=== PATIENT | male | born 1950 | race Caucasian/White ===

== ENCOUNTER → 2017-02-15 | Outpatient (CLI) | payer BC ==
[~2017-02-15] MED LIST: CNT PO; DIFL0.0519 OPR; DUTA0.5C PO; DXY100 PO; KETOCONAZOLE SHAMPOO; METR1GEL3; NAPR1TAB9 PO; SILO8CAP PO; SIMV20TA2 PO
[2017-02-15 09:22] LABS: BASO % 0.7 %; BASO ABS # 0.04 K/uL (0-0.2); COMPLETE YES; EOS % 7.4 %; IG% 0.2 %; LYMPH % 24.3 %; LYMPH ABS # 1.34 K/uL (1.2-3.4); MEAN CELL VOLUME 104.6 fL (80-100); MEAN CORPUSCULAR HGB CONC 34.4 g/dl (32-36); MEAN PLATELET VOLUME 11.1 fL (7.4-10.4); MONO % 14.1 %; NEUT % 53.3 %; PLATELET COUNT 104 K/uL (130-400); RED BLOOD COUNT 3.92 M/uL (4.7-6.1); WHITE BLOOD COUNT 5.52 K/uL (4.8-10.8)
[2017-02-15 09:48] LABS: ESTIMATED AVERAGE GLUCOSE 117 mg/dl; HA1C FLAG Normal (Normal)
[2017-02-15 10:05] LABS: ALT/SGPT 22 U/L (12-78); BLOOD UREA NITROGEN 26 mg/dl (7-18); BUN/CREATININE RATIO 23.5 (10-20); CALCIUM 8.6 mg/dl (8.5-10.1); CARBON DIOXIDE 26 mmol/L (21-32); CHLORIDE 110 mmol/L (98-107); CHOLESTEROL 165 mg/dl (0-200); GLUCOSE 113 mg/dl (70-99); POTASSIUM 4.3 mmol/L (3.5-5.1); SODIUM 143 mmol/L (136-145)
[2017-02-15 10:09] LABS: ALB/GLOB RATIO 1.2 (0.9-2); ALKALINE PHOSPHATASE 51 U/L (45-117); AST/SGOT 14 U/L (15-37); CHOLESTEROL/HDL RATIO 3.1; HDL CHOLESTEROL 54 mg/dl; LDL CHOLESTEROL CALCULATED 95 mg/dl; PROSTATE SPECIFIC ANTIGEN 0.425 ng/ml (0.000-4.000); TRIGLYCERIDES 81 mg/dl (0-150); VERY LOW DENSITY LIPOPROT CALC 16 mg/dl
== END | disposition home or self-care (01) ==
LOC: C.LAB1850 08:18
PROVIDERS: ATTEND Internal Medicine
DX: N40.0 Benign prostatic hyperplasia without lower urinary tract symptoms (principal); N39.41 Urge incontinence; E11.9 Type 2 diabetes mellitus without complications; D69.6 Thrombocytopenia, unspecified; Z13.220 Encounter for screening for lipoid disorders

== ENCOUNTER → 2017-02-21 | Outpatient (CLI) | payer BC | END | disposition home or self-care (01) | LOC: C.RDSM 11:42 | PROVIDERS: ATTEND Physical Medicine & Rehabilitation Sports Medicine | DX: M25.562 Pain in left knee (principal) ==

== ENCOUNTER → 2017-08-26 | Outpatient (CLI) | payer BC ==
[2017-08-26 12:11] LABS: BASO % 2.3 %; BASO ABS # 0.14 K/uL (0-0.2); COMPLETE YES; EOS % 6.9 %; HEMATOCRIT 42.7 % (42-52); IG% 0.8 %; LYMPH % 26.1 %; LYMPH ABS # 1.59 K/uL (1.2-3.4); MEAN CORPUSCULAR HEMOGLOBIN 35.8 pg (25-34); MEAN CORPUSCULAR HGB CONC 33.5 g/dl (32-36); MEAN PLATELET VOLUME 10.5 fL (7.4-10.4); MONO % 10.2 %; NEUT % 53.7 %; PLATELET COUNT 147 K/uL (130-400); RED BLOOD COUNT 3.99 M/uL (4.7-6.1)
[2017-08-26 12:24] LABS: ESTIMATED AVERAGE GLUCOSE 114 mg/dl; HA1C FLAG Normal (Normal)
[2017-08-26 12:48] LABS: ALT/SGPT 44 U/L (12-78); AST/SGOT 32 U/L (15-37); BLOOD UREA NITROGEN 20 mg/dl (7-18); BUN/CREATININE RATIO 18.4 (10-20); CALCIUM 9.6 mg/dl (8.5-10.1); CARBON DIOXIDE 23 mmol/L (21-32); CHLORIDE 109 mmol/L (98-107); GLUCOSE 103 mg/dl (70-99); POTASSIUM 4.2 mmol/L (3.5-5.1); SODIUM 141 mmol/L (136-145)
[2017-08-26 12:50] LABS: ALB/GLOB RATIO 1.2 (0.9-2); ALKALINE PHOSPHATASE 75 U/L (45-117)
== END | disposition home or self-care (01) ==
LOC: C.LAB1850 10:20
PROVIDERS: ATTEND Internal Medicine
DX: R73.03 Prediabetes (principal); G62.9 Polyneuropathy, unspecified

== ENCOUNTER 2017-11-23 00:42 | Emergency (ER) | payer BC ==
[~2017-11-23] VITALS: Ht 193 cm; Wt 113.0 kg
[2017-11-23 00:47] VITALS: TEMP 36.5; Ht 193 cm; Wt 113.0 kg
[2017-11-23] MEDS ORDERED: XYLOCAINE 1%/SOD BICARB 20 ML VIAL INFIL ONE (01:30)
[2017-11-23 01:44] LABS: BASO % 1.4 %; BASO ABS # 0.17 K/uL (0-0.2); EOS % 3.7 %; EOS ABS # 0.45 K/uL (0-0.5); HEMATOCRIT 46.3 % (42-52); HEMOGLOBIN 15.7 g/dL (14.0-18.0); IG# 0.16 K/uL (0.00-0.02); LYMPH % 20.8 %; LYMPH ABS # 2.54 K/uL (1.2-3.4); MEAN CELL VOLUME 109.7 fL (80-100); MEAN CORPUSCULAR HEMOGLOBIN 37.2 pg (25-34); MEAN CORPUSCULAR HGB CONC 33.9 g/dl (32-36); MEAN PLATELET VOLUME 10.7 fL (7.4-10.4); MONO % 3.9 %; MONO ABS # 0.47 K/uL (0.11-0.59); NEUT % 68.9 %; PLATELET COUNT 161 K/uL (130-400); RED CELL DISTRIBUTION WIDTH CV 14.7 % (11.5-14.5); RED CELL DISTRIBUTION WIDTH SD 59.2 fL (36.4-46.3); WHITE BLOOD COUNT 12.19 K/uL (4.8-10.8)
[2017-11-23 02:03] LABS: ALBUMIN 4.2 gm/dl (3.4-5.0); CALCIUM 9.3 mg/dl (8.5-10.1); CREATININE 1.33 mg/dl (0.60-1.40); TOTAL PROTEIN 8.2 gm/dl (6.4-8.2)
[2017-11-23 02:06] LABS: POTASSIUM 4.2 mmol/L (3.5-5.1)
--- NOTE | 2017-11-23 04:36 | EMERGENCY ROOM VISIT NOTE ---
ED Visit Note I was asked to the laceration repair of this patient. Location: Scalp Total length: 4cm Complexity: Simple Verbal consent was obtained after the risks and benefits were explained, including but not limited to bleeding, scarring, infection, pain, and bone/ nerve damage. At this time, the risks of the procedure are less than the risks of NOT performing the procedure. A time out was taken and the correct patient and site identified. The scalp was prepped with betadine. The target area was anesthetized with 3 ml of 1% lidocaine without epinephrine. Copious irrigation was performed using saline. The skin was re-prepped with betadine, the hair cleared from the wound, and a sterile field set. The wound was explored for foreign bodies and none found. Debridement was not performed. The wound edges were approximated using 9 surgical lorena in the standard fashion. Hemostasis and excellent approximation was achieved. Antibacterial ointment and a sterile dressing applied. Detailed wound care instructions and signs and symptoms of infection reviewed with the pt/. No complications and the patient tolerated the procedure well. Current/Historical Medications Scheduled Dutasteride (Avodart), 0.5 MG PO DAILY Simvastatin (Zocor), 20 MG PO QPM Allergies Coded Allergies: Adhesives (Verified Allergy, Mild, BANDAIDS - RED ITCH SKIN, 11/23/17) Animal Dander (Verified Allergy, Unknown, HORSE - UNKNOWN, 11/23/17) Horse-derived Products (Verified Allergy, Unknown, UNKNOWN, 11/23/17) Latex (Verified Allergy, Unknown, UNKNOWN, 11/23/17) Vital Signs Date Time Temp Pulse Resp B/P (MAP) Pulse Ox O2 Delivery O2 Flow Rate FiO2 11/23/17 04:06 84 11/23/17 04:01 147/79 11/23/17 04:00 86 15 96 11/23/17 03:31 129/73 11/23/17 03:01 143/75 11/23/17 03:00 87 18 95 11/23/17 02:31 145/83 11/23/17 02:01 89 18 140/89 96 Room Air 11/23/17 02:01 140/89 11/23/17 02:00 86 18 97 11/23/17 00:54 91 11/23/17 00:47 36.5 93 18 151/78 96 Room Air Laboratory Results 11/23/17 00:43 Red Blood Count 4.22, Mean Corpuscular Volume 109.7, Mean Corpuscular Hemoglobin 37.2, Mean Corpuscular Hemoglobin Concent 33.9, Mean Platelet Volume 10.7, Neutrophils (%) (Auto) 68.9, Lymphocytes (%) (Auto) 20.8, Monocytes (%) ( Auto) 3.9, Eosinophils (%) (Auto) 3.7, Basophils (%) (Auto) 1.4, Neutrophils # ( Auto) 8.40, Lymphocytes # (Auto) 2.54, Monocytes # (Auto) 0.47, Eosinophils # ( Auto) 0.45, Basophils # (Auto) 0.17 11/23/17 00:43 Test 11/23/17 00:43 11/23/17 01:37 11/23/17 01:55 White Blood Count 12.19 K/uL (4.8-10.8) Red Blood Count 4.22 M/uL (4.7-6.1) Hemoglobin 15.7 g/dL (14.0-18.0) Hematocrit 46.3 % (42-52) Mean Corpuscular Volume 109.7 fL (80-100) Mean Corpuscular Hemoglobin 37.2 pg (25-34) Mean Corpuscular Hemoglobin Concent 33.9 g/dl (32-36) Platelet Count 161 K/uL (130-400) Mean Platelet Volume 10.7 fL (7.4-10.4) Neutrophils (%) (Auto) 68.9 % Lymphocytes (%) (Auto) 20.8 % Monocytes (%) (Auto) 3.9 % Eosinophils (%) (Auto) 3.7 % Basophils (%) (Auto) 1.4 % Neutrophils # (Auto) 8.40 K/uL (1.4-6.5) Lymphocytes # (Auto) 2.54 K/uL (1.2-3.4) Monocytes # (Auto) 0.47 K/uL (0.11-0.59) Eosinophils # (Auto) 0.45 K/uL (0-0.5) Basophils # (Auto) 0.17 K/uL (0-0.2) RDW Standard Deviation 59.2 fL (36.4-46.3) RDW Coefficient of Variation 14.7 % (11.5-14.5) Immature Granulocyte % (Auto) 1.3 % Immature Granulocyte # (Auto) 0.16 K/uL (0.00-0.02) Anion Gap 9.0 mmol/L (3-11) Est Creatinine Clear Calc Drug Dose 73.1 ml/min Estimated GFR () 63.2 Estimated GFR (Non- 54.5 BUN/Creatinine Ratio 13.9 (10-20) Calcium Level 9.3 mg/dl (8.5-10.1) Total Bilirubin 0.3 mg/dl (0.2-1) Aspartate Amino Transf (AST/SGOT) 37 U/L (15-37) Alanine Aminotransferase (ALT/SGPT) 77 U/L (12-78) Alkaline Phosphatase 80 U/L (45-117) Total Protein 8.2 gm/dl (6.4-8.2) Albumin 4.2 gm/dl (3.4-5.0) Globulin 4.0 gm/dl (2.5-4.0) Albumin/Globulin Ratio 1.1 (0.9-2) Thyroid Stimulating Hormone (TSH) 1.210 uIu/ml (0.300-4.500) Ethyl Alcohol mg/dL 247.0 mg/dl (0-3) Urine Color YELLOW Urine Appearance CLEAR (CLEAR) Urine pH 5.0 (4.5-7.5) Urine Specific [place] 1.010 (1.000-1.030) Urine Protein NEG (NEG) Urine Glucose (UA) NEG (NEG) Urine Ketones NEG (NEG) Urine Occult Blood NEG (NEG) Urine Nitrite NEG (NEG) Urine Bilirubin NEG (NEG) Urine Urobilinogen NEG (NEG) Urine Leukocyte Esterase NEG (NEG) Departure Information Referrals Rainer Tyler M.D. (PCP) Forms HOME CARE DOCUMENTATION FORM, IMPORTANT VISIT INFORMATION Patient Instructions My [facility], ED Head Injury Closed Additional Instructions [place]: Read head injury handout and return for any symptoms. Keep wound clean and dry. No water on the area for 12-24 hrs then no soaking until lorena removed. Do not allow any crusting or dried blood to accumulate on lorena. If this occurs, use a 1:1 solution of hydrogen peroxide/water on a Q-tip to clean the wound. Use an antibiotic ointment for 3-4 days, then let wound dry. Staple removal in 8 days. Return sooner for any signs of infection (increasing redness , swelling, drainage). Ice and elevate for swelling and pain. Keep covered when in sun until lorena removed then SPF 50 or higher for one year. Vitamin E oil if desired two weeks after staple removal for reduction of scar.
[2017-11-23 04:58] VITALS: BP 155/90; PULSE 87; O2SAT 96
--- NOTE | 2017-11-23 07:08 | DIAGNOSTIC IMAGING REPORT ---
CT SCAN OF THE BRAIN WITHOUT IV CONTRAST CLINICAL HISTORY: Fall with head injury. COMPARISON STUDY: No priors. TECHNIQUE: Unenhanced axial CT scan of the brain is performed from the vertex to the skull base. A dose lowering technique was utilized adhering to the principles of ALARA. CT DOSE: 614.27 mGy.cm FINDINGS: Brain parenchyma: There are age-related involutional changes noting mild subcortical and periventricular microangiopathic change. There is no hemorrhage, mass effect, or evidence of acute territorial ischemia by CT criteria. Grimm-white matter is preserved. No extra-axial fluid collection is seen. Ventricles, sulci, cisterns: Prominent secondary to involutional change. Intracranial vasculature: There is atherosclerotic calcification of the cavernous carotid arteries. Calvarium: There is no depressed calvarial fracture. Sinuses and mastoids: There is mild mucosal thickening within the sphenoid sinuses. Mild to moderate mucosal thickening is seen within the ethmoid sinuses that is greatest anteriorly. A retention cyst in the right maxillary antrum measures up to 1.9 cm. Trace mucosal thickening seen within the maxillary sinuses. The mastoid air cells are well pneumatized. Orbits: The bony orbits are grossly intact. There are bilateral ocular lens implants. IMPRESSION: There is no hemorrhage, mass effect, or evidence of acute territorial ischemia by CT criteria. Electronically signed by: Wei Stein M.D. 11/23/2017 7:07 AM Dictated Date/Time: 11/23/2017 7:05 AM
--- NOTE | 2017-11-23 09:54 | EMERGENCY ROOM VISIT NOTE ---
History Report prepared by Danisha: Brenda Bradshaw Under the Supervision of: Dr. Savanah Ann D.O. First contact with patient: 00:53 Chief Complaint: FALL Stated Complaint: FALL History of Present Illness The patient is a 67 year old male who presents to the Emergency Room with complaints of an episode of a fall occurring last night. The patient states that he fell while going for his daily walk 5 hours ago. He states that he lost his footing and couldn't get up because he was too weak. He reports that he called his to help him get up. The states that he was able to walk home. She states that she was shocked that he had fallen, but notes he had fallen out of bed a month ago. She notes that he was fine, but had skinned his knees up. The patient states that he felt fine all day and did not feel weak. The notes that the patient seemed fine after the fall, but fell again two hours ago. She states that he had gotten up from watching TV to use the restroom and fell while on the toilet. She reports that she tried to get him up , but she couldn't this time. The patient denies ever falling off the toilet before. He states that he is not sure why he fell off and doesn't remember any of it. He notes that he thinks he may have lost consciousness since he hit his head so hard. His states that if he did it was very brief because she heard him fall and immediately went to his aid. She states that he was conscious when she arrived. The patient complains of feeling fatigued lately. The patient denies walking with a walker, nausea, vomiting, chest pain, shortness of breath, and drinking alcohol. Source of History: patient, spouse/significant other Onset: last night Position: other (global) Quality: other (global) Timing: other (episode) Associated Symptoms: + LOC, + fatigue, + weakness, No chest pain, No SOB, No nausea, No vomiting Review of Systems See HPI for pertinent positives & negatives. A total of 10 systems reviewed and were otherwise negative. Past Medical & Surgical Medical Problems: (1) Depression (2) Diabetes Family History No pertinent family history Social History Smoking Status: Former Smoker Marital Status: Housing Status: lives with significant other Current/Historical Medications Scheduled Dutasteride (Avodart), 0.5 MG PO DAILY Simvastatin (Zocor), 20 MG PO QPM Allergies Coded Allergies: Adhesives (Verified Allergy, Mild, BANDAIDS - RED ITCH SKIN, 11/23/17) Animal Dander (Verified Allergy, Unknown, HORSE - UNKNOWN, 11/23/17) Horse-derived Products (Verified Allergy, Unknown, UNKNOWN, 11/23/17) Latex (Verified Allergy, Unknown, UNKNOWN, 11/23/17) Physical Exam Vital Signs Date Time Temp Pulse Resp B/P (MAP) Pulse Ox O2 Delivery O2 Flow Rate FiO2 11/23/17 04:58 87 15 155/90 96 11/23/17 04:06 84 11/23/17 04:01 147/79 11/23/17 04:00 86 15 96 11/23/17 03:31 129/73 11/23/17 03:01 143/75 11/23/17 03:00 87 18 95 11/23/17 02:31 145/83 11/23/17 02:01 89 18 140/89 96 Room Air 11/23/17 02:01 140/89 11/23/17 02:00 86 18 97 11/23/17 00:54 91 11/23/17 00:47 36.5 93 18 151/78 96 Room Air Physical Exam Gen.: The patient is pleasant but seems to smell of alcohol. HEENT: Head - normocephalic. Large 4 cm laceration on the left parietal region of his scalp. Pupils are equal, round, and reactive to light. Extraocular eye muscles are intact and sclera are anicteric. Ears - bilaterally patent canals with no evidence of hemotympanum. Nose - moist nasal mucosa without evidence of trauma or discharge. Mouth - moist buccal mucosa with no trauma to the teeth or signs of malocclusion. Neck: The neck is supple and there is no pain to palpation over the posterior cervical spine and no obvious step-offs or deformities. There is no JVD or tracheal deviation. Chest: There are no signs of deformities, contusions or abrasions to the chest wall. There is no obvious crepitus or paradoxical chest rise. Heart: Regular, rate, and rhythm. There is a normal S1 and S2 with no murmurs, clicks, or gallops appreciated. Lungs: Clear to auscultation bilaterally with no wheezes, rales, or rhonchi. Abdomen: Soft, completely nontender, nondistended, with good bowel sounds. There is no sign of trauma such as contusions, abrasions or penetrations. There are no palpable pulsatile masses or hepatosplenomegaly. There is no guarding, rigidity, or rebound noted. Pelvis: Stable to rock and compression. Extremities: The patient has abrasions to both knees. There are easily palpable peripheral pulses. Neuro: The patient is awake and alert and easily able to follow commands. Muscle strength is 5 out of 5 in all 4 extremities. Otherwise, neuro exam is unremarkable. Slow to answer questions. Back: The entire thoracic, lumbar, and sacral spine were palpated. There are no obvious step-offs or deformities noted. There are no obvious signs of trauma such as contusions abrasions penetrations noted to the back. Medical Decision & Procedures ER Provider Diagnostic Interpretation: Radiology results as stated below per my review and the radiologist's interpretation: CT HEAD: No acute intracranial abnormality identified. Chronic small vessel ischemic disease and cerebral column loss Bilateral lens implants. Polyp versus mucous retention cyst in the right maxillary sinus. Mild mucosal thickening in the sphenoid sinuses, ethmoid air cells, and frontal sinuses. Atherosclerotic calcifications in the intracranial vasculature. Radiologist: Jaime Moreira MD Study ready at 02:17 and initial results transmitted at 02:53. Laboratory Results 11/23/17 00:43 Red Blood Count 4.22, Mean Corpuscular Volume 109.7, Mean Corpuscular Hemoglobin 37.2, Mean Corpuscular Hemoglobin Concent 33.9, Mean Platelet Volume 10.7, Neutrophils (%) (Auto) 68.9, Lymphocytes (%) (Auto) 20.8, Monocytes (%) ( Auto) 3.9, Eosinophils (%) (Auto) 3.7, Basophils (%) (Auto) 1.4, Neutrophils # ( Auto) 8.40, Lymphocytes # (Auto) 2.54, Monocytes # (Auto) 0.47, Eosinophils # ( Auto) 0.45, Basophils # (Auto) 0.17 11/23/17 00:43 Test 11/23/17 00:43 11/23/17 01:37 11/23/17 01:55 White Blood Count 12.19 K/uL (4.8-10.8) Red Blood Count 4.22 M/uL (4.7-6.1) Hemoglobin 15.7 g/dL (14.0-18.0) Hematocrit 46.3 % (42-52) Mean Corpuscular Volume 109.7 fL (80-100) Mean Corpuscular Hemoglobin 37.2 pg (25-34) Mean Corpuscular Hemoglobin Concent 33.9 g/dl (32-36) Platelet Count 161 K/uL (130-400) Mean Platelet Volume 10.7 fL (7.4-10.4) Neutrophils (%) (Auto) 68.9 % Lymphocytes (%) (Auto) 20.8 % Monocytes (%) (Auto) 3.9 % Eosinophils (%) (Auto) 3.7 % Basophils (%) (Auto) 1.4 % Neutrophils # (Auto) 8.40 K/uL (1.4-6.5) Lymphocytes # (Auto) 2.54 K/uL (1.2-3.4) Monocytes # (Auto) 0.47 K/uL (0.11-0.59) Eosinophils # (Auto) 0.45 K/uL (0-0.5) Basophils # (Auto) 0.17 K/uL (0-0.2) RDW Standard Deviation 59.2 fL (36.4-46.3) RDW Coefficient of Variation 14.7 % (11.5-14.5) Immature Granulocyte % (Auto) 1.3 % Immature Granulocyte # (Auto) 0.16 K/uL (0.00-0.02) Anion Gap 9.0 mmol/L (3-11) Est Creatinine Clear Calc Drug Dose 73.1 ml/min Estimated GFR () 63.2 Estimated GFR (Non- 54.5 BUN/Creatinine Ratio 13.9 (10-20) Calcium Level 9.3 mg/dl (8.5-10.1) Total Bilirubin 0.3 mg/dl (0.2-1) Aspartate Amino Transf (AST/SGOT) 37 U/L (15-37) Alanine Aminotransferase (ALT/SGPT) 77 U/L (12-78) Alkaline Phosphatase 80 U/L (45-117) Total Protein 8.2 gm/dl (6.4-8.2) Albumin 4.2 gm/dl (3.4-5.0) Globulin 4.0 gm/dl (2.5-4.0) Albumin/Globulin Ratio 1.1 (0.9-2) Thyroid Stimulating Hormone (TSH) 1.210 uIu/ml (0.300-4.500) Ethyl Alcohol mg/dL 247.0 mg/dl (0-3) Urine Color YELLOW Urine Appearance CLEAR (CLEAR) Urine pH 5.0 (4.5-7.5) Urine Specific [place] 1.010 (1.000-1.030) Urine Protein NEG (NEG) Urine Glucose (UA) NEG (NEG) Urine Ketones NEG (NEG) Urine Occult Blood NEG (NEG) Urine Nitrite NEG (NEG) Urine Bilirubin NEG (NEG) Urine Urobilinogen NEG (NEG) Urine Leukocyte Esterase NEG (NEG) Laboratory results per my review. Procedure 0130: Ordered Lidocaine HCl 20 ml INFIL. ECG Indication: weakness Rate (beats per minute): 89 Rhythm: normal sinus Findings: no acute ischemic change, no ectopy ED Course 0118: Past medical records reviewed. The patient was evaluated in room B2. A complete history and physical exam was performed. A twelve-lead EKG was obtained as described above. An IV lock was initiated and labs are drawn as above. 0130: Ordered Lidocaine HCl 20 ml INFIL. 0152: I reevaluated the patient and he was doing okay. He was unsure when his last Tetanus was. The patient went for CT scan of the brain. 0215: I reevaluated the patient and he is doing well. The patient's blood alcohol level was elevated. I confronted him about this. His explains that the patient has a history of alcoholism. The patient explains that he was not truthful because he did not want his to know that he was drinking 0354: I reevaluated the patient and reviewed his labs with him and his . I notified them that the PA will be in shortly to staple his laceration. Please see her procedure note dictation 0445: Upon reevaluation, the patient was resting comfortably. I discussed findings and results with him. He verbalized agreement of the treatment plan. The patient was discharged home. Medical Decision The patient is a 67 year old male who presents to the Emergency Room with complaints of an episode of a fall occurring last night. Differential diagnoses include alcohol intoxication, closed head injury, intracranial mass, hypoglycemia, hyponatremia, hydrocephalus. LABS: White count 12.2 Stable H&H Normal renal function Normal electrolytes Glucose 121 Normal LFTs Normal TSH Urinalysis was negative Alcohol 247 The patient presented to the emergency department after suffering 2 falls at home. The second one resulted in a laceration to the left side of his head. Initially, the patient denied any alcohol use. A more broad workup was performed. However, the patient blood alcohol level came back at 247. I discussed the possibility of rehabilitation with the patient. He was not interested. The wound on the head was repaired. He was allowed some time to sober up and then he was discharged home after receiving all of his laboratory results. Medication Reconcilliation Current Medication List: was personally reviewed by me Blood Pressure Screening Patient's blood pressure: Elevated blood pressure Blood pressure disposition: Elevated BP felt to be situational Impression Primary Impression: Scalp laceration Additional Impression: Alcohol intoxication Scribe Attestation The scribe's documentation has been prepared under my direction and personally reviewed by me in its entirety. I confirm that the note above accurately reflects all work, treatment, procedures, and medical decision making performed by me. Departure Information Dispostion Home / Self-Care Referrals Rainer Tyler M.D. (PCP) Forms HOME CARE DOCUMENTATION FORM, IMPORTANT VISIT INFORMATION Patient Instructions My [facility] Additional Instructions [place]: Read head injury handout and return for any symptoms. Keep wound clean and dry. No water on the area for 12-24 hrs then no soaking until lorena removed. Do not allow any crusting or dried blood to accumulate on lorena. If this occurs, use a 1:1 solution of hydrogen peroxide/water on a Q-tip to clean the wound. Use an antibiotic ointment for 3-4 days, then let wound dry. Staple removal in 8 days. Return sooner for any signs of infection (increasing redness , swelling, drainage). Ice and elevate for swelling and pain. Keep covered when in sun until lorena removed then SPF 50 or higher for one year. Vitamin E oil if desired two weeks after staple removal for reduction of scar. Avoid such excessive alcohol use in the future. Problem Qualifiers Primary Impression: Scalp laceration Encounter type: initial encounter Qualified Codes: S01.01XA - Laceration without foreign body of scalp, initial encounter Additional Impression: Alcohol intoxication Complication of substance-induced condition: uncomplicated Qualified Codes: F10.920 - Alcohol use, unspecified with intoxication, uncomplicated
== END 2017-11-23 04:59 | disposition home or self-care (01) ==
LOC: C.EDB 00:42 → EDBD 00:42 → C.EDB 04:59
DX: S01.01XA Laceration without foreign body of scalp, initial encounter (principal); F10.920 Alcohol use, unspecified with intoxication, uncomplicated; W18.12XA Fall from or off toilet with subsequent striking against object, initial encounter; E11.9 Type 2 diabetes mellitus without complications; Z87.891 Personal history of nicotine dependence

== ENCOUNTER → 2017-12-13 | Outpatient (CLI) | payer BC ==
[~2017-12-13] MED LIST changes: -CNT PO; -DIFL0.0519 OPR; -DXY100 PO; -KETOCONAZOLE SHAMPOO; -METR1GEL3; -NAPR1TAB9 PO; -SILO8CAP PO
[2017-12-13 09:35] LABS: BASO % 0.3 %; BASO ABS # 0.02 K/uL (0-0.2); EOS % 4.7 %; EOS ABS # 0.31 K/uL (0-0.5); HEMATOCRIT 42.8 % (42-52); HEMOGLOBIN 14.3 g/dL (14.0-18.0); IG# 0.03 K/uL (0.00-0.02); LYMPH % 24.9 %; LYMPH ABS # 1.65 K/uL (1.2-3.4); MEAN CELL VOLUME 108.6 fL (80-100); MEAN CORPUSCULAR HEMOGLOBIN 36.3 pg (25-34); MEAN CORPUSCULAR HGB CONC 33.4 g/dl (32-36); MEAN PLATELET VOLUME 10.9 fL (7.4-10.4); MONO % 11.9 %; MONO ABS # 0.79 K/uL (0.11-0.59); NEUT % 57.7 %; NEUT ABS # 3.83 K/uL (1.4-6.5); PLATELET COUNT 143 K/uL (130-400); RED CELL DISTRIBUTION WIDTH CV 14.4 % (11.5-14.5); RED CELL DISTRIBUTION WIDTH SD 57.7 fL (36.4-46.3); WHITE BLOOD COUNT 6.63 K/uL (4.8-10.8)
[2017-12-13 09:42] LABS: HEMOGLOBIN A1C 5.5 % (4.5-5.6)
[2017-12-13 10:06] LABS: ALBUMIN 3.8 gm/dl (3.4-5.0); ALT/SGPT 45 U/L (12-78); AST/SGOT 25 U/L (15-37); BLOOD UREA NITROGEN 25 mg/dl (7-18); CALCIUM 8.3 mg/dl (8.5-10.1); CARBON DIOXIDE 21 mmol/L (21-32); CHOLESTEROL 174 mg/dl (0-200); CREATININE 1.33 mg/dl (0.60-1.40); GLUCOSE 111 mg/dl (70-99); SODIUM 138 mmol/L (136-145)
[2017-12-13 10:09] LABS: ALKALINE PHOSPHATASE 57 U/L (45-117); LDL CHOLESTEROL CALCULATED 113 mg/dl; TOTAL PROTEIN 7.3 gm/dl (6.4-8.2)
== END | disposition home or self-care (01) ==
LOC: C.LAB1850 08:19
PROVIDERS: ATTEND Internal Medicine
DX: K21.9 Gastro-esophageal reflux disease without esophagitis (principal); E11.9 Type 2 diabetes mellitus without complications; N20.0 Calculus of kidney; E78.5 Hyperlipidemia, unspecified; D69.6 Thrombocytopenia, unspecified; N28.1 Cyst of kidney, acquired

== ENCOUNTER → 2017-12-19 | Outpatient (CLI) | payer BC ==
--- NOTE | 2017-12-19 16:15 | DIAGNOSTIC IMAGING REPORT ---
R KNEE 1 OR 2 VIEWS ROUTINE CLINICAL HISTORY: 67 years-old Male presenting with M25.561 Right knee [id number]. TECHNIQUE: Frontal and lateral views of the right knee were obtained. COMPARISON: Comparison made to plain radiographs of the left knee from 02/21/2017. FINDINGS: Medial joint space loss and subchondral sclerosis, slightly increased from prior radiographs. Mild osteophytosis in the lateral and patellofemoral compartments. Prominent these of height at the insertion of the quadriceps tendon. Small knee joint effusion suspected. No acute fracture or malalignment. IMPRESSION: 1. Tricompartmental degenerative changes with medial joint space loss. 2. Small knee joint effusion. 3. No acute osseous injury. Electronically signed by: Myke Hernandez M.D. 12/19/2017 4:13 PM Dictated Date/Time: 12/19/2017 4:12 PM
== END | disposition home or self-care (01) ==
LOC: C.RAD1850 15:55
PROVIDERS: ATTEND Internal Medicine
DX: M25.561 Pain in right knee (principal); M89.8X6 Other specified disorders of bone, lower leg; M25.461 Effusion, right knee

== ENCOUNTER → 2018-03-30 | Outpatient (CLI) | payer BC ==
[2018-03-30 09:58] LABS: HEMOGLOBIN A1C 5.7 % (4.5-5.6)
[2018-03-30 10:08] LABS: ALT/SGPT 49 U/L (12-78); AST/SGOT 35 U/L (15-37); BLOOD UREA NITROGEN 24 mg/dl (7-18); CARBON DIOXIDE 27 mmol/L (21-32); CHOLESTEROL 226 mg/dl (0-200); CREATININE 1.27 mg/dl (0.60-1.40); GLUCOSE 122 mg/dl (70-99); LDL CHOLESTEROL CALCULATED 143 mg/dl; POTASSIUM 3.9 mmol/L (3.5-5.1); SODIUM 139 mmol/L (136-145)
== END | disposition home or self-care (01) ==
LOC: C.LAB1850 08:10
PROVIDERS: ATTEND Internal Medicine
DX: E11.9 Type 2 diabetes mellitus without complications (principal); E78.5 Hyperlipidemia, unspecified

== ENCOUNTER 2025-02-10 16:15 | Inpatient (IN) ==
--- OUTSIDE RECORDS SUMMARY | 2025-02-10 16:21 | External Medical Summary | Continuity of Care Document ---
Author Name Unknown Organization [facility] [address] [facility] 2 Address [address] [id number] Care Team Providers Care Key Maker Name Role Phone Rainer Tyler Primary Care Physician [phone] Encounter [facility] [id number] Date(s): 12/26/24 - 12/26/24 [facility] [address] [id number] Encounter Diagnosis Inflamed seborrheic keratosis(Discharge Diagnosis) - 12/26/24 Seborrheic keratoses(Discharge Diagnosis) - 12/26/24 Other rosacea(Discharge Diagnosis) - 12/26/24 Discharge Disposition: Home or Self Care Attending Physician: MD Reese Thomas A Encounter Type: Clinic Allergies, Adverse Reactions, Alerts Substance Criticality Severity Reaction Reaction Severity Status Adhesive bandage Rash Act avtar Hay Nasal congestion Act avtar Horses positive skin test A ctive Latex skin irritation Rash Active Assessment and Plan Extracted from: Title:Clinical Document Author:MD Hugh, Ralph Hays Date:12/26/24 OUTPATIENT NOTE Name: ALVAREZ DIDIER Mike Patient Number:[id number] : 1950 Date of Service: 12/26/2024 _ Didier Dewitt returns for reevaluation. He notes discontinuation of doxycycline approximately 6 months ago and has noted no flare since discontinuing the medication. I advised him to continue off doxycycline and monitor for recurrence of the rosacea. Keratotic papule noted on the left medial calf. This appears as an inflamed seborrheic keratosis that was treated with cryotherapy as such with patient consent. Side effects were discussed and the patient will return if lesion does not completely resolve. Review of systems medications allergies as noted on the chart. The patient is in stable health. He will be taking one of his grandchildren to [place] next month. Examination reveals pleasant well-nourished white male type I skin who is alert and oriented x 3 with normal mood and affect. Examination of the scalp, head, neck, back, chest, arms, hands, fingers, abdominal area, legs, feet, and toes reveals the findings as noted above, scattered seborrheic keratoses on the back which require no further treatment and is otherwise unremarkable. The patient will return as needed for reevaluation. Medications Avodart 0.5 mg oral capsule Start: 05/09/13 8:29:00 AM EDT, 1 cap, PO, Daily Start Date: 05/09/13 Status: Ordered Repeat number: 1 betamethasone dipropionate 0.05% topical cream Start: 07/02/19 2:07:00 AM EDT, 1 appl, topical, bid Start Date: 07/02/19 Status: Ordered Repeat number: 1 Centrum Silver oral tablet Start: 04/13/13 1:01:00 PM EDT, 1 tab, PO, Daily Start Date: 04/13/13 Status: Ordered Repeat number: 1 doxycycline hyclate 50 mg oral capsule Start: 08/24/23 7:47:00 AM EDT, See Instructions, Disp# 180 cap, Refills: 3, TAKE 1 CAPSULE TWICE ADAY WITH FOOD, Pharmacy: [facility] Start Date: 08/24/23 Status: Ordered Quantity: 180.0 Unit: cap Repeat number: 1 escitalopram 10 mg oral tablet Start: 07/02/19 2:08:00 AM EDT, 1 tab, PO, Daily Start Date: 07/02/19 Status: Ordered Repeat number: 1 fluocinonide 0.05% topical solution Start: 12/15/21 2:54:00 PM EST, 1 appl, topical, bid, Disp# 60 mL, Refills: 2, to scalp for itching, Pharmacy: [facility] Start Date: 12/15/21 Status: Ordered Quantity: 60.0 Unit: mL Repeat number: 3 gabapentin 100 mg oral capsule Start: 07/02/19 2:08:00 AM EDT, 1 cap, PO, qhs Start Date: 07/02/19 Status: Ordered Repeat number: 1 metroNIDAZOLE 0.75% topical gel Start: 01/11/19 10:54:00 AM EST, See Instructions, Disp# 1 tube, Refills: 3, apply to face bid prn rosacea, Pharmacy: [facility] Start Date: 01/11/19 Status: Ordered Quantity: 1.0 Unit: tube Repeat number: 4 Nizoral 2% topical shampoo Start: 12/29/22 12:59:00 PM EST, See Instructions, Disp# 240 mL, Refills: 3, shampoo scalp 10 minutes daily for екатерина derm, Pharmacy: [facility] Start Date: 12/29/22 Status: Ordered Quantity: 240.0 Unit: mL Repeat number: 4 omeprazole 20 mg oral delayed release capsule Start: 07/02/19 2:05:00 AM EDT, 1 cap, PO, Daily Start Date: 07/02/19 Status: Ordered Repeat number: 1 Ozempic (0.25 mg or 0.5 mg dose) 2 mg/3 mL subQ pen 0.25 MG SUBCUTANEOUSLY ONCE WEEKLY FOR 4 WEEKS Start Date: 07/06/24 Status: Ordered Repeat number: 1 simvastatin 20 mg oral tablet Start: 05/09/13 8:29:00 AM EDT, 1 tab, PO, qhs Start Date: 05/09/13 Status: Ordered Repeat number: 1 triamcinolone 0.1% topical cream Start: 12/15/21 2:55:00 PM EST, 1 appl, topical, bid, Disp# 60 g, Refills: 2, apply to waistline for dermatitis, Pharmacy: [facility] Start Date: 12/15/21 Status: Ordered Quantity: 60.0 Unit: g Repeat number: 3 Tylenol 500 mg oral tablet Start: 07/03/19 1:52:00 PM EDT, 2 tab, PO, q8h Start Date: 07/03/19 Status: Ordered Repeat number: 1 Mental Status 12/26/24 Barriers to Learning one year None evide nt Mandatory Health Literacy Documentation Yes Health Literacy Communication Barriers N ever Primary Language Belarusian Problem List Condition Confirmation Course Effective Dates Status H ealth Status Informant BPH (benign prostatic hypertrophy) Confirmed Active DM (diabetes mellitus) 1 Confirmed Active Dysplastic nevus Confirmed Active C7 cervical fracture Confirmed Active Hyperlipidemia Confirmed Active Knee pain, left Confirmed Active Reflux Confirmed Active Rosacea Confirmed Active Seasonal allergies Confirmed Active Stomach ulcer Confirmed Active 1non-insulin Diagnosis Diagnosis Type Effective Dates Health Status Clinical Service Informant Other rosacea Discharge Diagnosis 12/26/24 Seborrheic keratoses Discharge Diagnosis 12/26/24 Inflamed seborrheic keratosis Discharge Diagnosis 12/26/24 Procedures Procedure Date Related Diagnosis Body Site Status CT scan - whole body 08/2024 Comp leted Cataract extraction 01/2014 Compl eted Cystoscopy 03/14/13 Completed Hernia repair 2011 Completed Left knee arthroscopy 01/21/09 Com pleted Social History Social History Type Response Smoking Status Never smoked 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 He notes discontinuation of doxycycline approximately 6 months ago and has noted no flare since discontinuing the medication. I advised him to continue off doxycycline and monitor for recurrence of the rosacea. Keratotic papule noted on the left medial calf. This appears as an inflamed seborrheic keratosis that was treated with cryotherapy as such with patient consent. Side effects were discussed and the patient will return if lesion does not completely resolve. Review of systems medications allergies as noted on the chart. The patient is in stable health. He will be taking one of his grandchildren to [place] next month. Examination reveals pleasant well-nourished white male type I skin who is alert and oriented x 3 with normal mood and affect. Examination of the scalp, head, neck, back, chest, arms, hands, fingers, abdominal area, legs, feet, and toes reveals the findings as noted above, scattered seborrheic keratoses on the back which require no further treatment and is otherwise unremarkable. The patient will return as needed for reevaluation. Electronic Signature on File Electronically Reviewed/Signed by: Zacarias Reese MD Author Signature Dt/Tm:12/26/2024 11:09 AM Department of Dermatology [facility] Patient Care team information Care Team Personnel Name: MD Tyler Jeffrey W Position: Referring DIRECT Member Role: Primary Care Provider Address: [facility] [address] Telecom: [phone] Care Team Related Persons Name: JOHNNY DEWITT Name: GERSON MOURA Insurance Providers Guarantor name: DIDIER DEWITT Health Plan Information #: 1 Payer: [employer] PPO Member Number: [id number] Policy Number: NA Group Number: [id number] Health Plan Information #: 2 Payer: [employer] PPO Member Number: [id number] Policy Number: NA Group Number: [id number]
[2025-02-10 16:46] LABS: Hematocrit (blood only) 45.4 % (42.0-52.0); Hemoglobin 15.9 g/dl (14.0-18.0); Mean Corpuscular Hemoglobin 34.8 pg (25.0-34.0); Mean Corpuscular Volume 99.3 fL (80.0-100.0); Mean Platelet Volume 10.5 fL (9.4-12.4); Platelet Count 149 K/uL (130-400); RDW Coefficient of Variation 12.7 % (11.5-14.5); RDW Standard Deviation 46.5 fL (36.4-46.3); Red Blood Count 4.57 M/uL (4.70-6.10); White Blood Count 17.98 K/ul (4.8-10.8)
--- NOTE | 2025-02-10 16:48 | Emergency Department Note ---
Impression & Plan SBO (small bowel obstruction), Abdominal pain, Weakness ED Provider Note NAME: DIDIER PINO AGE: 74 SEX: M : 1950 ARRIVES VIA: Walk-In INFORMANT: Patient, ED PROVIDER(S): Librado Baker DO CHIEF COMPLAINT: Abdominal pain HPI: Patient is a 74-year-old male who presents to the ER for periumbilical abdominal pain which started around 7 this morning. Associated with vomiting. Pain radiates throughout the belly. Does have a burning feeling coming up into the chest especially worse with vomiting. This has been present since 7 AM as well. Denies any headache or change in vision. No chest pain or shortness of breath. No dysuria, urgency, or frequency. No exertional symptoms. No other exacerbating or remitting factors. No previous abdominal surgeries. ADDITIONAL HISTORY OBTAINED: Additional history obtained from who is present at bedside who notes that no one else at home is sick Chronic Medical/Social Conditions Affecting Care: Per HPI PAST MEDICAL HISTORY:See Below PAST SURGICAL HISTORY:See Below FAMILY HISTORY:See Below SOCIAL HISTORY:See Below HOME MEDICATIONS:See Below ALLERGIES:See Below VITALS:See Below PHYSICAL EXAMINATION: GENERAL: Sitting up in bed, alert, well appearing, well nourished, no distress, non-toxic EYE EXAM: normal conjunctiva. OROPHARYNX: mucous membranes are moist NECK: supple, no nuchal rigidity, no adenopathy, non-tender LUNGS: Clear to auscultation. Normal chest wall mechanics HEART: no murmurs, S1 normal and S2 normal ABDOMEN: abdomen soft, non-tender, normo-active bowel sounds, no masses, no rebound or guarding. UPPER EXTREMITIES: upper extremities are grossly normal. LOWER EXTREMITIES: No pitting edema. NEURO EXAM: Normal sensorium, cranial nerves II-XII grossly intact, normal speech, no gross weakness of arms, no gross weakness of legs. MEDICAL DECISION MAKING: Patient is a 74-year-old male who presents to the ER with above-stated complaint. IV was established and blood work was obtained. Labs show mild leukocytosis of 2000. No significant anemia. BMP along with LFTs and bilirubin were unremarkable. Troponin was negative. Lipase was normal. CT abdomen pelvis showed a small bowel obstruction. Discussed with general surgery who notes that they will evaluate the patient at bedside per Dr. Andrade. Discussed with the hospitalist for further evaluation management treatment. He was given fluids and IV morphine and Zofran x 2. Updated bedside. No previous abdominal surgeries. Consults/Care Managements Discussions: Per MDM Triage Nursing notes reviewed. Limited review of prior medical records performed Vital Signs: reviewed and remarkable for no significant abnormalities Differential diagnosis: Differential diagnoses includes but is not limited to gastritis, peptic ulcer disease, GERD, gallbladder disease, pancreatitis, small bowel obstruction, appendicitis, diverticulitis, hernia, urinary tract infection, torsion, perforation, trauma, infectious. ER treatment provided: See below Diagnostics interpreted by me include EKG and cardiac monitoring as listed below: -Cardiac Monitoring: An order was placed for continuous cardiac monitoring. The monitor shows a rate of 80 with sinus rhythm. -ECG: Sinus rhythm rate 80 Normal axis No PVCs QTc 442 -Laboratory studies:Interpreted by me as stated above in MDM and shown below. Imaging studies: Xrays: As interpreted by me:none CTs show: CT abdomen pelvis shows air-fluid levels throughout the small bowel CT abdomen pelvis per radiology suggest a small bowel obstruction Procedures:none Critical Care: None Past Med/Surg History Problem List (Updated 02/10/25 @ 21:27 by Librado Baker DO) Weakness (Acute) Abdominal pain (Acute) SBO (small bowel obstruction) (Acute) Leukocytosis Small bowel obstruction Arachnoid cyst Sensorineural hearing loss (SNHL) of left ear with restricted hearing of right ear Peripheral neuropathy Diabetes mellitus, type 2 no meds, diet/exercise controlled Left knee DJD Right knee DJD Cerumen impaction Cerebral microvascular disease Knee pain Thrombocytopenia Prediabetes Bilateral tinnitus Sensorineural hearing loss (SNHL) of both ears Elevated serum creatinine Loss of height Vitamin D deficiency Vitamin B12 deficiency History of colon polyps Encounter for pre-operative examination Hyperlipidemia Fatty liver BPH (benign prostatic hyperplasia) Depression Medical History Bilateral tinnitus Osteoarthritis Right sciatic nerve pain GERD (gastroesophageal reflux disease) Diabetes Surgical History History of colonoscopy with polypectomy History of arthroscopy of right knee History of right inguinal hernia repair History of oral surgery gum removal History of phacoemulsification of cataract of both eyes with intraocular lens implantation Family History Father Alzheimer disease Other Family history non-contributory No family history of adverse response to anesthesia Denies family history of Ovarian cancer Prostate cancer Myocardial infarction Breast cancer Colorectal cancer Social History Smoking Status: Never smoker Second Hand Exposure: No; Do You Dip or Chew Tobacco: No; Hx Alcohol Use: No Hx Substance Use: No Preferred Language: Kuwaiti Communication Ability: Effective Visual Impairment: No Limitations Hearing Ability: Use of Hearing Aid Fermentation Manager Required: No Beliefs That Will Affect Care: None marital status: Current Living Situation: Spouse current occupational status: retired 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 [employer] Feels Safe at Home: Yes Dental Care, Regularly: Yes Physical Activity Frequency: Daily Physical Activity Frequency Comment: Stretching Seatbelt Use: always Sunscreen Use: No Assistive Devices: Glasses Allergies Allergies Allergy/AdvReac Type Severity Reaction Status Date / Time adhesive Allergy Mild BANDAIDS - Verified 12/03/24 09:15 RED ITCH SKIN latex Allergy Mild from Verified 12/03/24 09:15 allergen testing, skin irriation animal dander Allergy Unknown HORSE - Verified 12/03/24 09:15 from allergen testing Horse/Equine Containing Allergy Unknown UNKNOWN--from Verified 12/03/24 09:15 Products allergen testing No Known Drug Allergies Allergy Verified 12/03/24 09:15 Home Meds Home Medications Medication Instructions Recorded Confirmed multivitamin 1 tab PO QDL 04/12/19 02/10/25 cholecalciferol (vitamin D3) 50 50 mcg PO DAILY 02/04/22 02/10/25 mcg (2,000 unit) capsule dutasteride 0.5 mg capsule 0.5 mg PO HS 12/03/24 02/10/25 escitalopram oxalate 10 mg tablet 30 mg PO UD 02/10/25 02/10/25 gabapentin 100 mg capsule 100 mg PO UD 02/10/25 02/10/25 Previous Rx's Medication Instructions Recorded simvastatin 20 mg tablet (Zocor) 20 mg PO PM #90 tabs 02/23/24 semaglutide 0.25 mg or 0.5 mg (2 0.5 mg (0.736 mL) subcut .ONCE 12/03/24 mg/3 mL) subcutaneous pen injector WEEKLY #3 mL Results & Data (ED) Vital Signs Vital Signs - 24 hr 02/10/25 16:20 02/10/25 16:46 02/10/25 16:46 Temperature 36.6 C Temperature Source Temporal Artery Scan Pulse Rate 83 Pulse Rate [Right Finger] 76 Pulse Rate from SpO2 Sensor Pulse Rhythm [Right Finger] Regular Pulse Strength [Right Finger] Normal Respiratory Rate 20 18 Respiratory Effort / Characteristics Non-Labored Spontaneous Non-Labored Respiratory Depth Normal Normal Respiratory Pattern Regular Regular Blood Pressure 134/79 Blood Pressure [Left Arm] 156/87 H Blood Pressure Mean 97 Blood Pressure Mean [Left Arm] 110 Blood Pressure Position [Left Arm] Lying Pulse Oximetry 96 97 97 Oxygen Delivery Method Room Air Room Air Room Air Sepsis Recent Fever Within 48 Hours No Sepsis New/Unexplained Change in Mental Status N/A Sepsis Action Taken by Nursing No Action Required 02/10/25 16:58 02/10/25 17:00 02/10/25 17:39 Temperature Temperature Source Pulse Rate 77 72 Pulse Rate [Right Finger] Pulse Rate from SpO2 Sensor 73 Pulse Rhythm [Right Finger] Pulse Strength [Right Finger] Respiratory Rate 17 Respiratory Effort / Characteristics Respiratory Depth Respiratory Pattern Blood Pressure 162/89 H Blood Pressure [Left Arm] Blood Pressure Mean 113 Blood Pressure Mean [Left Arm] Blood Pressure Position [Left Arm] Pulse Oximetry 97 Oxygen Delivery Method Room Air Room Air Sepsis Recent Fever Within 48 Hours Sepsis New/Unexplained Change in Mental Status Sepsis Action Taken by Nursing 02/10/25 18:41 02/10/25 21:04 Temperature Temperature Source Pulse Rate Pulse Rate [Right Finger] 77 81 Pulse Rate from SpO2 Sensor Pulse Rhythm [Right Finger] Regular Pulse Strength [Right Finger] Normal Respiratory Rate 22 18 Respiratory Effort / Characteristics Non-Labored Non-Labored Spontaneous Respiratory Depth Normal Normal Respiratory Pattern Regular Regular Blood Pressure Blood Pressure [Left Arm] 151/108 H 165/90 H Blood Pressure Mean Blood Pressure Mean [Left Arm] 122 115 Blood Pressure Position [Left Arm] Lying Pulse Oximetry 95 99 Oxygen Delivery Method Room Air Room Air Sepsis Recent Fever Within 48 Hours Sepsis New/Unexplained Change in Mental Status Sepsis Action Taken by Nursing Laboratory Data 02/10/25 16:30 02/10/25 16:30 Lab Results 02/10/25 02/10/25 Range/Units 16:30 17:55 WBC 17.98 H (4.8-10.8) K/ul RBC 4.57 L (4.70-6.10) M/uL Hgb 15.9 (14.0-18.0) g/dl Hct 45.4 (42.0-52.0) % MCV 99.3 (80.0-100.0) fL MCH 34.8 H (25.0-34.0) pg MCHC 35.0 (32.0-36.0) g/dL RDW Std Deviation 46.5 H (36.4-46.3) fL RDW Coeff of Chuck 12.7 (11.5-14.5) % Plt Count 149 (130-400) K/uL MPV 10.5 (9.4-12.4) fL Immature Gran % (Auto) 0.6 % Neut % (Auto) 90.7 % Lymph % (Auto) 6.0 % [place] % (Auto) 2.4 % Eos % (Auto) 0.1 % Baso % (Auto) 0.2 % Neut # (Auto) 16.33 H (1.40-6.50) K/uL Lymph # (Auto) 1.08 L (1.20-3.40) K/uL [place] # (Auto) 0.43 (0.11-0.59) K/uL Eos # (Auto) 0.01 (0.00-0.50) K/uL Baso # (Auto) 0.03 (0.00-0.20) K/uL Immature Gran # (Auto) 0.10 (0.01-0.20) K/uL Sodium 137 (136-145) mmol/L Potassium 4.3 (3.5-5.1) mmol/L Chloride 105 (98-107) mmol/L Carbon Dioxide 21 (21-32) mmol/L Anion Gap 11 (3-11) BUN 25 H (6-23) mg/dl Creatinine 1.25 (0.6-1.4) mg/dl Est Cr Clr Drug Dosing 64.8 ml/min eGFR 60.05 BUN/Creatinine Ratio 20.0 (10-20) Glucose 172 H (70-99(Fasting)) mg/dl Calcium 9.9 (8.6-10.3) mg/dl Total Bilirubin 0.8 (0.2-1.0) mg/dl AST 21 (13-39) U/L ALT 21 (7-52) U/L Alkaline Phosphatase 55 (34-104) U/L Troponin I High Sens 3.7 3.8 (0-20) pg/ml Total Protein 7.8 (6.0-8.3) gm/dl Albumin 4.5 (3.4-5.0) gm/dl Globulin 3.3 (2.5-4.0) gm/dl Albumin/Globulin Ratio 1.4 (0.9-2) Lipase 9 L (11-82) U/L Administered Medications Discontinued Medications Sodium Chloride (Nss) 1,000 mls @ 999 mls/hr IV .Q1H1M ONE Stop: 02/10/25 17:45 Last Infusion: 02/10/25 18:50 Dose: Infused Documented By: Admin: 02/10/25 17:06 Dose: 999 mls/hr Documented By: REY Pantoprazole Sodium (Protonix) 40 mg in 10 mls @ 5 mls/min IV NOW ONE Stop: 02/10/25 20:08 Last Admin: 02/10/25 21:01 Dose: 5 mls/min Documented By: RAJIV Piperacillin Sod/Tazobactam Sod (Zosyn) 4.5 gm in 100 mls @ 200 mls/hr IV NOW STA; Protocol Stop: 02/10/25 20:51 Last Admin: 02/10/25 21:01 Dose: 200 mls/hr Documented By: RAJIV Ioversol (Optiray 320 100ml) 93 ml IV ONCE ONE Stop: 02/10/25 17:27 Last Admin: 02/10/25 17:26 Dose: 93 ml Documented By: SHANNON Morphine Sulfate (Morphine Sulfate 4 Mg/Ml 1 Ml Carp\Vial) 4 mg IV NOW STA Stop: 02/10/25 19:05 Last Admin: 02/10/25 19:10 Dose: 4 mg Documented By: ROSE MARIE Ondansetron HCl (Ondansetron Inj 2 Mg/Ml 2 Ml Vial) 4 mg IV NOW STA Stop: 02/10/25 16:46 Last Admin: 02/10/25 17:06 Dose: 4 mg Documented By: REY Ondansetron HCl (Ondansetron Inj 2 Mg/Ml 2 Ml Vial) 4 mg IV NOW STA Stop: 02/10/25 19:05 Last Admin: 02/10/25 19:10 Dose: 4 mg Documented By: HJW Imaging Data Radiologist's Impression: Chest X-Ray 02/10/25 16:24 INDICATION: Chest pain. TECHNIQUE: Frontal radiograph of the chest. COMPARISON: Radiograph from 01/07/2019. FINDINGS: Low inspiratory depth. Mild cardiomegaly. Pulmonary vasculature appear within normal limits. No infiltrate, pleural effusion or pneumothorax. No acute osseous abnormality evident. IMPRESSION: No acute cardiopulmonary process. Electronically signed by Lee Bradford 02-10-2025 5:48 PM Abdomen/Pelvis CT 02/10/25 16:45 INDICATION: Abdominal pain. COMPARISON: CT from 07/01/2019. TECHNIQUE: Axial CT images of the abdomen and pelvis were obtained following IV contrast administration. Coronal and sagittal reformations were reviewed. FINDINGS: Visualized lung bases appear unremarkable. The liver, gallbladder, spleen, pancreas and adrenal glands appear unremarkable. No hydronephrosis. Multiple bilateral renal cysts again noted. Fluid-filled distal esophagus. Fluid in the stomach. Dilated small bowel loops with air-fluid levels. No pneumatosis or portal venous gas. Small amount of fluid in the abdomen and pelvis. No free air or abscess. No evidence of colitis/appendicitis. Negative for abdominal aortic aneurysm or dissection. The urinary bladder appears unremarkable. No acute osseous abnormality evident. IMPRESSION: Dilated small bowel loops concerning for small bowel obstruction. No pneumatosis or portal venous gas. Small amount of fluid in the abdomen and pelvis. No free air or abscess. Follow-up as clinically relevant. Electronically signed by Lee Bradford 02-10-2025 5:34 PM Discharge Plan Visit Data Chief Complaint: Chest Pain Stated Complaint: HEART BURN, VOMITING, GERD ED Provider: Librado Baker Discharge Problem: SBO (small bowel obstruction), Abdominal pain, Weakness Forms Stand Alone Forms: [facility] Prescriptions Prescriptions: No Action simvastatin [Zocor] 20 mg tablet 20 mg PO PM Qty: 90 3RF cholecalciferol (vitamin D3) 50 mcg (2,000 unit) capsule 50 mcg PO DAILY Rx Instructions: 02/10-otc unable to verify dutasteride 0.5 mg capsule 0.5 mg PO HS semaglutide 0.25 mg or 0.5 mg (2 mg/3 mL) pen injector 0.5 mg subcut .ONCE WEEKLY Qty: 3 3RF multivitamin Tablet 1 tab PO QDL Rx Instructions: 3/30-otc unable to verify gabapentin 100 mg capsule 100 mg PO UD Rx Instructions: 100 mg po hs. last filled 04/25/24 90 day supply escitalopram oxalate 10 mg tablet 30 mg PO UD Rx Instructions: original: 30 mg po hs. Last fill 11/02/24 for 90 days #180 10 mg po bid Referrals Referrals: Rainer Tyler MD [Primary Care Provider] - Discharge Problem: Abdominal pain Qualifiers: Abdominal location: unspecified location Qualified Code(s): R10.9 - Unspecified abdominal pain
[2025-02-10 17:03] LABS: Basophils # (auto) 0.03 K/uL (0.00-0.20); Basophils % (auto) 0.2 %; Eosinophils # (auto) 0.01 K/uL (0.00-0.50); Eosinophils % (auto) 0.1 %; Immature Granulocytes % (auto) 0.6 %; Lymphocytes # (auto) 1.08 K/uL (1.20-3.40); Monocytes # (auto) 0.43 K/uL (0.11-0.59); Monocytes % (auto) 2.4 %; Neutrophils # (auto) 16.33 K/uL (1.40-6.50); Neutrophils % (auto) 90.7 %
[2025-02-10] MEDS: ONDANSETRON INJ 2 MG/ML 2 ML VIAL IV STA ×2 (17:06→19:10)
[2025-02-10] MEDS: SODIUM CHLORIDE 0.9% 1,000 ML IV ONE (17:06)
[2025-02-10 17:09] LABS: Albumin Globulin Ratio 1.4 (0.9-2); Albumin Level 4.5 gm/dl (3.4-5.0); Bilirubin,Total 0.8 mg/dl (0.2-1.0); Calcium 9.9 mg/dl (8.6-10.3); Creatinine Clr Calc Pharmacy 64.8 ml/min; Globulin 3.3 gm/dl (2.5-4.0); Potassium 4.3 mmol/L (3.5-5.1); Total Protein 7.8 gm/dl (6.0-8.3)
[2025-02-10 17:15] LABS: Troponin I High Sensitivity 3.7 pg/ml (0-20)
[2025-02-10] MEDS: OPTIRAY 320 100ml IV ONE (17:26)
--- NOTE | 2025-02-10 17:35 | CT Scan Report ---
INDICATION: Abdominal pain. COMPARISON: CT from 07/01/2019. TECHNIQUE: Axial CT images of the abdomen and pelvis were obtained following IV contrast administration. Coronal and sagittal reformations were reviewed. FINDINGS: Visualized lung bases appear unremarkable. The liver, gallbladder, spleen, pancreas and adrenal glands appear unremarkable. No hydronephrosis. Multiple bilateral renal cysts again noted. Fluid-filled distal esophagus. Fluid in the stomach. Dilated small bowel loops with air-fluid levels. No pneumatosis or portal venous gas. Small amount of fluid in the abdomen and pelvis. No free air or abscess. No evidence of colitis/appendicitis. Negative for abdominal aortic aneurysm or dissection. The urinary bladder appears unremarkable. No acute osseous abnormality evident. IMPRESSION: Dilated small bowel loops concerning for small bowel obstruction. No pneumatosis or portal venous gas. Small amount of fluid in the abdomen and pelvis. No free air or abscess. Follow-up as clinically relevant. Electronically signed by Lee Bradford 02-10-2025 5:34 PM
--- NOTE | 2025-02-10 17:48 | XRay Report ---
INDICATION: Chest pain. TECHNIQUE: Frontal radiograph of the chest. COMPARISON: Radiograph from 01/07/2019. FINDINGS: Low inspiratory depth. Mild cardiomegaly. Pulmonary vasculature appear within normal limits. No infiltrate, pleural effusion or pneumothorax. No acute osseous abnormality evident. IMPRESSION: No acute cardiopulmonary process. Electronically signed by Lee Bradford 02-10-2025 5:48 PM
[2025-02-10] MEDS: MoRPHine SULFATE 4 MG/ML 1 ML CARP\\VIAL IV STA (19:10)
--- NOTE | 2025-02-10 19:26 | History & Physical Report ---
Date of Service February 10, 2025 Assessment & Plan (1) Small bowel obstruction: (2) Leukocytosis: (3) Diabetes mellitus, type 2: Plan Patient is a 74 y/o male with a PMHx of GERD, T2DM, depression, BPH, sensorineural hearing loss. He presented to the ED due to mid sternal chest pain/ burning and vomiting. He was found to have a SBO. General surgery team is consulted and patient is being admitted to the hospitalist service. #SBO/leukocytosis last BM 02/10/[address] showed dilated small bowel loops concerning for small bowel obstruction, small amount of free fluid in abd and pelvis, no free air or abscess n.p.o. status, hold nonessential PO medications received 1L NSS in ED, continue fluid resuscitation with LR at 80 ml/hr IV Protonix BID IV Tylenol scheduled for pain control, IV morphine prn for breakthrough pain IV Zofran as needed Will cover with Zosyn 4.5g Q8H given leukocytosis - WC 17.98 with neutrophil predominance General Surgery consulted trend CBC #T2DM Controlled on semaglutide at home; hold Most recent A1C 5.6 11/2024 defer insulin use as only prediabetic and using for weight loss BSG ACHS if eating, q6h if npo Chronic stable diagnoses: BPH - continue dutasteride, monitor for obstruction, bladder scan prn HLD - hold statin depression - hold escitalopram VTE ppx: SCDs, defer chemical ppx as may require surgical intervention Diet: NPO Dispo: Med surg Admission and Anticipated Discharge Date Admission Date: 02/10/25 History of Present Illness Chief Complaint: chest pain Primary Care Provider: Rainer Tyler MD Patient is a 74 y/o male with a PMHx of GERD, T2DM, depression, BPH. He presented to the ED due to mid sternal chest pain/ burning and vomiting. He was found to have a SBO. General surgery team is consulted and patient is being admitted to the hospitalist service. Patient seen at bedside. he has upper/epigastric pain and burning that began this afternoon. He denies any previous history of small bowel obstructions or previous abdominal surgeries. He has vomited approximately 6 times in his began, however in small amounts, denies any hematemesis. He stated his last bowel movement was this morning at 11 AM, no abnormalities.Lightheadedness denies any visible areas of dehydration. He denies nicotine use. He is a previous alcoholic, denies any current daily alcohol use. He did not take any of his medications today, he needs his dutasteride. this is Ozempic injections on Wednesdays. He previously stated he was at the highest dose but it was decreased in November because it was giving him significant constipation. He has only been using 25% of the dosages. He wishes to be DNR/DNI. He stated his is updated that he is here. Allergies Allergy/AdvReac Type Severity Reaction Status Date / Time adhesive Allergy Mild BANDAIDS - Verified 12/03/24 09:15 RED ITCH SKIN latex Allergy Mild from Verified 12/03/24 09:15 allergen testing, skin irriation animal dander Allergy Unknown HORSE - Verified 12/03/24 09:15 from allergen testing Horse/Equine Containing Allergy Unknown UNKNOWN--from Verified 12/03/24 09:15 Products allergen testing No Known Drug Allergies Allergy Verified 12/03/24 09:15 Home Medications Medication Instructions Recorded Confirmed Type multivitamin 1 tab PO QDL 04/12/19 02/10/25 History cholecalciferol (vitamin D3) 50 50 mcg PO DAILY 02/04/22 02/10/25 History mcg (2,000 unit) capsule simvastatin 20 mg tablet (Zocor) 20 mg PO PM #90 tabs 02/23/24 02/10/25 Rx dutasteride 0.5 mg capsule 0.5 mg PO HS 12/03/24 02/10/25 History semaglutide 0.25 mg or 0.5 mg (2 0.5 mg (0.736 mL) subcut .ONCE 12/03/24 02/10/25 Rx mg/3 mL) subcutaneous pen injector WEEKLY #3 mL escitalopram oxalate 10 mg tablet 30 mg PO UD 02/10/25 02/10/25 History gabapentin 100 mg capsule 100 mg PO UD 02/10/25 02/10/25 History Past Med/Surg History Problem List (Updated 02/10/25 @ 21:27 by Librado Baker DO) Weakness (Acute) Abdominal pain (Acute) SBO (small bowel obstruction) (Acute) Leukocytosis Small bowel obstruction Arachnoid cyst Sensorineural hearing loss (SNHL) of left ear with restricted hearing of right ear Peripheral neuropathy Diabetes mellitus, type 2 no meds, diet/exercise controlled Left knee DJD Right knee DJD Cerumen impaction Cerebral microvascular disease Knee pain Thrombocytopenia Prediabetes Bilateral tinnitus Sensorineural hearing loss (SNHL) of both ears Elevated serum creatinine Loss of height Vitamin D deficiency Vitamin B12 deficiency History of colon polyps Encounter for pre-operative examination Hyperlipidemia Fatty liver BPH (benign prostatic hyperplasia) Depression Medical History Bilateral tinnitus Osteoarthritis Right sciatic nerve pain GERD (gastroesophageal reflux disease) Diabetes Surgical History History of colonoscopy with polypectomy History of arthroscopy of right knee History of right inguinal hernia repair History of oral surgery gum removal History of phacoemulsification of cataract of both eyes with intraocular lens implantation Family History Father Alzheimer disease Other Family history non-contributory No family history of adverse response to anesthesia Denies family history of Ovarian cancer Prostate cancer Myocardial infarction Breast cancer Colorectal cancer Social History Smoking Status: Never smoker Second Hand Exposure: No; Do You Dip or Chew Tobacco: No; Hx Alcohol Use: Yes Alcohol type: wine Hx Substance Use: No Preferred Language: Thai Communication Ability: Effective Visual Impairment: No Limitations Hearing Ability: Use of Hearing Aid Validation Software Facilitator Required: No Beliefs That Will Affect Care: None marital status: Current Living Situation: Spouse Current Living Situation Comment: home with and dog current occupational status: retired 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 HEENT- EOMI, mucous membranes dry. Hearing grossly intact. Heart-normal S1 and S2. No murmurs, rubs or gallops. Lungs-clear bilaterally, no respiratory distress, no accessory muscle use. Abdomen-normal bowel sounds and soft.Mild distention. Tender to RUQ and RLL. Dry heaving on exam. Extremities- no clubbing, cyanosis, or edema. Rheumatologic-normal range of motion. Results & Data Results & Data Vital Signs (Past 12 Hours) Vital Signs Temp Pulse Pulse Resp BP BP Pulse Ox 02/10/25 18:41 77 22 151/108 H 95 02/10/25 17:39 02/10/25 17:00 72 17 162/89 H 97 02/10/25 16:58 77 02/10/25 16:46 97 02/10/25 16:46 76 18 156/87 H 97 02/10/25 16:20 36.6 C 83 20 134/79 96 O2 Del Method 02/10/25 18:41 Room Air 02/10/25 17:39 Room Air 02/10/25 17:00 Room Air 02/10/25 16:58 02/10/25 16:46 Room Air 02/10/25 16:46 Room Air 02/10/25 16:20 Room Air Diagnostic Findings reviewed AP CT and CXR ECG Additional Comments: ordered Code Status & VTE Plan Code Status dnr/dni VTE Prophylaxis Plan VTE Prophylaxis will be ordered: Yes Supervising Physician Co-Signing Physician Notes Attending addendum: I have physically seen this patient, have supervised the STEPHEN's activities, and agree with the H&P unless as otherwise noted. Assessment and Plan: The patient is a 74-year-old male with a past medical history including GERD, diabetes mellitus type 2, depression, BPH, and sensorineural hearing loss. He presents to the emergency department due to midsternal chest pain/burning, and vomiting. Workup in the emergency department included a CT scan of abdomen pelvis which showed a small bowel obstruction. The patient was referred to the [facility] service for further evaluation and treatment, and was seen by general surgery while in the emergency department. Small bowel obstruction/leukocytosis- Patient reports last bowel movement was 02/10/2025 at 11:[address] scan of abdomen pelvis showed dilated small bowel loops concerning for small bowel obstruction, small amount of free fluid in the abdomen and pelvis, with no free air or abscess. NPO Hold nonessential medications Status post 1 L normal saline bolus in the ED Continue LR at 80 mL/h x 1 additional liter Pantoprazole 40 mg IV twice daily Acetaminophen 1 g IV every 6 hours as needed for mild pain or fever Morphine sulfate 2 mg IV every 4 hours as needed for breakthrough pain Zofran 4 mg IV every 6 hours as needed Zosyn 4.5 g IV every 8 hours General Surgery consulted Follow serial CBC with differential and chemistry profile Chronic medical diagnoses: BPH with LUTS-continue dutasteride, bladder scan as needed Hyperlipidemia-hold simvastatin while n.p.o. Depression-hold escitalopram while n.p.o. Diabetes mellitus/weight management-hold semaglutide BPH-hold due to steroid PG Care Time/CCT Total # of Minutes Spent Total Time Spent with Patient: Total time spent is greater than 50% in coordination of care (as documented) at patient's floor/unit and/or counseling patient: Coding Level of Care Code 30954 INT INP/OBS CARE MIN Diagnoses Small bowel obstruction K56.609 Leukocytosis D72.829 Diabetes mellitus, type 2 E11.9
--- NOTE | 2025-02-10 20:38 | Surgery Consultation ---
Date of Consultation February 10, 2025 Assessment & Plan (1) Small bowel obstruction: 74-year-old gentleman with developing small bowel obstruction. He has had a prior hernia surgery in the past. He is not an extremis. Vitals are stable with no fever. He will be admitted to the hospital on the medicine service. He will be maintained n.p.o. with IV fluids hydration. If he develops further nausea and vomiting he will need an NG tube. We will monitor him for now. No surgical interventions required at this time. We will continue to follow. History of Present Illness Reason for Consultation: Small bowel obstruction Requesting Physician: Librado Baker MD Attending Physician: Librado Baker MD History of Present Illness 74-year-old gentleman presents with 1 day history of abdominal pain in the central abdomen, nausea, vomiting x 1. He has had a prior hernia repair in the right groin. He denies other surgeries. He denies fevers and chills. He had a bowel movement at 11 AM. He states he might be passing flatus. He denies any other complaints. Allergies Allergy/AdvReac Type Severity Reaction Status Date / Time adhesive Allergy Mild BANDAIDS - Verified 12/03/24 09:15 RED ITCH SKIN latex Allergy Mild from Verified 12/03/24 09:15 allergen testing, skin irriation animal dander Allergy Unknown HORSE - Verified 12/03/24 09:15 from allergen testing Horse/Equine Containing Allergy Unknown UNKNOWN--from Verified 12/03/24 09:15 Products allergen testing No Known Drug Allergies Allergy Verified 12/03/24 09:15 Home Medications Medication Instructions Recorded Confirmed Type multivitamin 1 tab PO QDL 04/12/19 02/10/25 History cholecalciferol (vitamin D3) 50 50 mcg PO DAILY 02/04/22 02/10/25 History mcg (2,000 unit) capsule simvastatin 20 mg tablet (Zocor) 20 mg PO PM #90 tabs 02/23/24 02/10/25 Rx dutasteride 0.5 mg capsule 0.5 mg PO HS 12/03/24 02/10/25 History semaglutide 0.25 mg or 0.5 mg (2 0.5 mg (0.736 mL) subcut .ONCE 12/03/24 02/10/25 Rx mg/3 mL) subcutaneous pen injector WEEKLY #3 mL escitalopram oxalate 10 mg tablet 30 mg PO UD 02/10/25 02/10/25 History gabapentin 100 mg capsule 100 mg PO UD 02/10/25 02/10/25 History Patient History Medical History Bilateral tinnitus Osteoarthritis Right sciatic nerve pain GERD (gastroesophageal reflux disease) Diabetes Surgical History History of colonoscopy with polypectomy History of arthroscopy of right knee History of right inguinal hernia repair History of oral surgery gum removal History of phacoemulsification of cataract of both eyes with intraocular lens implantation Family History Father Alzheimer disease Other Family history non-contributory No family history of adverse response to anesthesia Denies family history of Ovarian cancer Prostate cancer Myocardial infarction Breast cancer Colorectal cancer Social History Smoking Status: Never smoker Second Hand Exposure: No; Do You Dip or Chew Tobacco: No; Hx Alcohol Use: No Hx Substance Use: No Preferred Language: Jordanian Communication Ability: Effective Visual Impairment: No Limitations Hearing Ability: Use of Hearing Aid [employer] Required: No Beliefs That Will Affect Care: None marital status: Current Living Situation: Spouse current occupational status: retired 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 [employer] Feels Safe at Home: Yes Dental Care, Regularly: Yes Physical Activity Frequency: Daily Physical Activity Frequency Comment: Stretching Seatbelt Use: always Sunscreen Use: No Assistive Devices: Glasses Review of Systems Review of Systems: All systems reviewed & are unremarkable except as noted in HPI & below Physical Exam Constitutional: WD/WN, vitals as above Eyes: PERRL, conjunctivae normal, anicteric sclerae Neck: trachea midline, no thyromegaly Respiratory: normal respiratory effort; no respiratory distress and no labored breathing Cardiovascular: Rate/Rhythm: regular rate and regular rhythm Gastrointestinal (Abdomen): Inspection/Auscultation: abdomen normal to inspection and + abdomen distended Percussion/Palpation: + abdomen tender ( Mild TTP in right side) and abdomen soft; no guarding and abdomen not rigid Skin: no rashes, warm and dry Psychiatric: A+Ox3, euthymic affect Results & Data Vital Signs (Past 12 Hours) Vital Signs Temp Pulse Pulse Resp BP BP Pulse Ox 02/10/25 18:41 77 22 151/108 H 95 02/10/25 17:39 02/10/25 17:00 72 17 162/89 H 97 02/10/25 16:58 77 02/10/25 16:46 97 02/10/25 16:46 76 18 156/87 H 97 02/10/25 16:20 36.6 C 83 20 134/79 96 O2 Del Method 02/10/25 18:41 Room Air 02/10/25 17:39 Room Air 02/10/25 17:00 Room Air 02/10/25 16:58 02/10/25 16:46 Room Air 02/10/25 16:46 Room Air 02/10/25 16:20 Room Air Laboratory Results 02/10/25 02/10/25 Range/Units 17:55 16:30 WBC 17.98 H (4.8-10.8) K/ul RBC 4.57 L (4.70-6.10) M/uL Hgb 15.9 (14.0-18.0) g/dl Hct 45.4 (42.0-52.0) % MCV 99.3 (80.0-100.0) fL MCH 34.8 H (25.0-34.0) pg MCHC 35.0 (32.0-36.0) g/dL RDW Std Deviation 46.5 H (36.4-46.3) fL RDW Coeff of Chuck 12.7 (11.5-14.5) % Plt Count 149 (130-400) K/uL MPV 10.5 (9.4-12.4) fL Immature Gran % (Auto) 0.6 % Neut % (Auto) 90.7 % Lymph % (Auto) 6.0 % Saline % (Auto) 2.4 % Eos % (Auto) 0.1 % Baso % (Auto) 0.2 % Neut # (Auto) 16.33 H (1.40-6.50) K/uL Lymph # (Auto) 1.08 L (1.20-3.40) K/uL Saline # (Auto) 0.43 (0.11-0.59) K/uL Eos # (Auto) 0.01 (0.00-0.50) K/uL Baso # (Auto) 0.03 (0.00-0.20) K/uL Immature Gran # (Auto) 0.10 (0.01-0.20) K/uL Sodium 137 (136-145) mmol/L Potassium 4.3 (3.5-5.1) mmol/L Chloride 105 (98-107) mmol/L Carbon Dioxide 21 (21-32) mmol/L Anion Gap 11 (3-11) BUN 25 H (6-23) mg/dl Creatinine 1.25 (0.6-1.4) mg/dl Est Cr Clr Drug Dosing 64.8 ml/min eGFR 60.05 BUN/Creatinine Ratio 20.0 (10-20) Glucose 172 H (70-99(Fasting)) mg/dl Calcium 9.9 (8.6-10.3) mg/dl Total Bilirubin 0.8 (0.2-1.0) mg/dl AST 21 (13-39) U/L ALT 21 (7-52) U/L Alkaline Phosphatase 55 (34-104) U/L Troponin I High Sens 3.8 3.7 (0-20) pg/ml Total Protein 7.8 (6.0-8.3) gm/dl Albumin 4.5 (3.4-5.0) gm/dl Globulin 3.3 (2.5-4.0) gm/dl Albumin/Globulin Ratio 1.4 (0.9-2) Lipase 9 L (11-82) U/L Diagnostic Findings NDICATION: Abdominal pain. COMPARISON: CT from 07/01/2019. TECHNIQUE: Axial CT images of the abdomen and pelvis were obtained following IV contrast administration. Coronal and sagittal reformations were reviewed. FINDINGS: Visualized lung bases appear unremarkable. The liver, gallbladder, spleen, pancreas and adrenal glands appear unremarkable. No hydronephrosis. Multiple bilateral renal cysts again noted. Fluid-filled distal esophagus. Fluid in the stomach. Dilated small bowel loops with air-fluid levels. No pneumatosis or portal venous gas. Small amount of fluid in the abdomen and pelvis. No free air or abscess. No evidence of colitis/appendicitis. Negative for abdominal aortic aneurysm or dissection. The urinary bladder appears unremarkable. No acute osseous abnormality evident. IMPRESSION: Dilated small bowel loops concerning for small bowel obstruction. No pneumatosis or portal venous gas. Small amount of fluid in the abdomen and pelvis. No free air or abscess. Follow-up as clinically relevant. Electronically signed by Lee Bradford 02-10-2025 5:34 PM Dictated: 02/10/25 [id number] Transcribed:
[2025-02-10] MEDS: 4.5GM X1 IV STA (21:01)
[2025-02-10] MEDS: PANTOprazole 40 MG/10 ML SYR IV ONE (21:01)
[2025-02-10] MEDS: LACTATED RINGER'S 1,000 ML IV SCH (22:12)
[2025-02-10] MEDS ORDERED: NALOXONE HCL 0.4 MG/1 ML VIAL/CARP IV PRN (22:25)
[2025-02-10] MEDS ORDERED: GLUCAGON FOR INJ 1 MG VIAL SQ PRN (22:25)
[2025-02-10] MEDS ORDERED: GLUCOSE 10 TAB/TUBE PO PRN (22:25)
[2025-02-10] MEDS ORDERED: DEXTROSE 50% 50 ML SYRINGE IV PRN (22:25)
[2025-02-10] MEDS ORDERED: GLUCOSE 40% GEL 15 GM TUBE PO PRN (22:25)
[2025-02-10] MEDS ORDERED: CARBOHYDRATES FOR HYPOGLYCEMIA PO PRN (22:25)
[2025-02-10] MEDS: FINASTERIDE 5 MG TAB PO SCH (23:38)
[2025-02-10] MEDS: ACETAMINOPHEN 1,000 MG/100 ML VIAL IV SCH (23:38)
[2025-02-11] MEDS: PIPERACILLIN/TAZOBACTAM 4.5 GM/100 ML BAG IV SCH (02:44)
[2025-02-11] MEDS ORDERED: Nursing to Pharmacy Communication SCH (06:45)
[2025-02-11 07:51] LABS: Basophils # (auto) 0.03 K/uL (0.00-0.20); Basophils % (auto) 0.2 %; Eosinophils # (auto) 0.04 K/uL (0.00-0.50); Eosinophils % (auto) 0.3 %; Hematocrit (blood only) 41.4 % (42.0-52.0); Hemoglobin 14.1 g/dl (14.0-18.0); Immature Granulocytes # (auto) 0.06 K/uL (0.01-0.20); Immature Granulocytes % (auto) 0.4 %; Lymphocytes # (auto) 1.35 K/uL (1.20-3.40); Lymphocytes % (auto) 9.2 %; Mean Corpuscular Hemoglobin 34.3 pg (25.0-34.0); Mean Corpuscular Hgb Conc 34.1 g/dL (32.0-36.0); Mean Corpuscular Volume 100.7 fL (80.0-100.0); Mean Platelet Volume 10.7 fL (9.4-12.4); Monocytes # (auto) 1.23 K/uL (0.11-0.59); Monocytes % (auto) 8.4 %; Neutrophils # (auto) 12.01 K/uL (1.40-6.50); Neutrophils % (auto) 81.5 %; Platelet Count 145 K/uL (130-400); RDW Coefficient of Variation 13.2 % (11.5-14.5); RDW Standard Deviation 49.1 fL (36.4-46.3); Red Blood Count 4.11 M/uL (4.70-6.10); White Blood Count 14.72 K/ul (4.8-10.8)
[2025-02-11 08:06] LABS: BUN Creatinine Ratio 18.6 (10-20); Calcium 8.6 mg/dl (8.6-10.3); Creatinine Clr Calc Pharmacy 57.9 ml/min; Magnesium 1.8 mg/dl (1.7-2.4); Potassium 4.5 mmol/L (3.5-5.1)
--- NOTE | 2025-02-11 08:27 | Electrocardiogram Report ---
Test Reason : Blood Pressure : */* mmHG Vent. Rate : 80 BPM Atrial Rate : 80 BPM P-R Int : 166 ms QRS Dur : 86 ms QT Int : 384 ms P-R-T Axes : 69 80 78 degrees QTcB Int : 442 ms Poor data quality, interpretation may be adversely affected Normal sinus rhythm Normal ECG When compared with ECG of 01-Jul-2019 17:41, No significant change was found Confirmed by Danilo Edge ([id number]) on 02/11/2025 8:27:24 AM Referred By: REFERRED SELF Confirmed By: Danilo Edge
[2025-02-11] MEDS: PANTOprazole 40 MG/10 ML SYR IV SCH (08:55)
--- NOTE | 2025-02-11 10:06 | Hospitalist Progress Note ---
Date of Service February 11, 2025 Assessment & Plan (1) Small bowel obstruction: (2) Leukocytosis: (3) Diabetes mellitus, type 2: Plan Patient is a 74 y/o male with a PMHx of GERD, T2DM, depression, BPH, sensorineural hearing loss. He presented to the ED due to mid sternal chest pain/ burning and vomiting. He was found to have a SBO. General surgery team is consulted and patient is being admitted to the hospitalist service. #SBO/leukocytosis last BM 02/10/[address] showed dilated small bowel loops concerning for small bowel obstruction, small amount of free fluid in abd and pelvis, no free air or abscess N.P.O. status, hold nonessential PO medications received 1L NSS in ED, continue fluid resuscitation with LR at 80 ml/hr IV Protonix BID IV Tylenol scheduled for pain control, IV morphine prn for breakthrough pain IV Zofran as needed General Surgery following Leukocytosis with neutrophil predominance - improving - WBC 14.72 from 17.98 on admission, Neutrophils 12.01 from 16.33 on admission Continue IV Zosyn Continue additional medications as noted above. No flatus today, continue to monitor. PT ordered. Diet advancement per surgical team. #T2DM Controlled on semaglutide at home; hold Most recent A1C 5.6 11/2024 defer insulin use as only prediabetic and using for weight loss BSG ACHS if eating, q6h if npo Chronic stable diagnoses: BPH - continue dutasteride, monitor for obstruction, bladder scan prn HLD - hold statin Depression - hold escitalopram VTE ppx: SCDs, defer chemical ppx as may require surgical intervention Diet: NPO Dispo: Med surg Admission and Anticipated Discharge Date Admission Date: February 10, 2025 Subjective Patient is a 74-year-old male who is currently admitted for SBO. He presented to the ED yesterday with nausea, vomiting, substernal/abdominal pain and was found to have small bowel obstruction. Today, patient reports that he is feeling well. He states last bowel movement was 02/10/2025. He has not passed any gas since yesterday. He has not been ambulatory. He reports chronic knee pain that sometimes makes it difficult to get up and moving around. Otherwise, he denies fever/chills, headache, dizziness, chest pain, shortness of breath, cough, palpitations, nausea, vomiting, diarrhea, blood in stool or urine, dysuria, polyuria. He states abdominal pain is much improved from yesterday, denies heartburn or regurgitation. He is NPO. He is following with general surgery. He has no additional complaints or concerns. Review of Systems Review of Systems: See HPI Physical Exam Physical Exam: General: no acute distress; non-toxic appearing; well-nourished; cooperative HEENT: normocephalic, atraumatic; no scleral icterus; PERRLA w/ EOMs intact; vision and hearing grossly intact Neck: supple; no lymphadenopathy; trachea midline Skin: warm, dry without signs of tenting; no cyanosis; no rashes, bruising, lesions, or erythema noted CV: chest wall NTP; RRR; S1/S2 normal; no murmurs/rubs/gallops; pulses intact and symmetric at radial, DP, and PT Lungs: no acute respiratory distress; symmetrical chest wall expansion; clear breath sounds across all lung wood w/o adventitious sounds; no wheezing, rales, rhonchi ABD: Soft, Hypoactive BS present; (+) minimal tenderness to palpation in central abdomen. Otherwise nontender to palpation, no rebound/guarding; no distention MSK: no tics or fasciculations; no edema noted in the LEs b/l, nonerythematous Neuro: A&Ox3; normal mood and affect; fluent speech; no focal deficits; sensation grossly intact in the LEs b/l Results & Data Results & Data Vital Signs (Past 12 Hours) Vital Signs Temperature, heart rate, respiratory rate, blood pressure, oxygen concentration reviewed Temp Pulse Resp BP Pulse Ox O2 Del Method 02/11/25 07:57 97.5 F L 69 16 118/54 L 95 Room Air 02/10/25 22:45 97.9 F 81 18 155/83 H 93 Room Air Laboratory Results CBC, BMP, Magnesium reviewed Diagnostic Findings General surgery consult reviewed PG Care Time/CCT Total # of Minutes Spent Total Time Spent with Patient: Total time spent is greater than 50% in coordination of care (as documented) at patient's floor/unit and/or counseling patient: Coding Level of Care Code None Diagnoses Small bowel obstruction K56.609 Leukocytosis D72.829 Diabetes mellitus, type 2 E11.9
--- NOTE | 2025-02-11 10:49 | Surgery Progress Note ---
Date of Service February 11, 2025 Assessment & Plan (1) SBO (small bowel obstruction): Plan The patient is a 74-year-old male with a past medical history including GERD, diabetes mellitus type 2, depression, BPH, and sensorineural hearing loss. He presents to the emergency department due to midsternal chest pain/burning, and vomiting. Workup in the emergency department included a CT scan of abdomen pelvis which showed a small bowel obstruction. The patient was referred to the [facility] service for further evaluation and treatment, and was seen by general surgery while in the emergency department. Leukocytosis is resolving, patient is afebrile. PT for ambulation continue NPO until patient is passing more flatus May start clear liquids when he is passing good gas will follow up tomorrow. Admission and Anticipated Discharge Date Admission Date: February 10, 2025 Subjective pt seen and examined this am. He denies nausea. States he last passed flatus yesterday. Abdominal pain resolving, very minimal today. Physical Exam Constitutional: no acute distress, not ill appearing, not in distress and not diaphoretic Respiratory: normal respiratory effort; no respiratory distress, no labored breathing and does not use accessory muscles Gastrointestinal (Abdomen): Inspection/Auscultation: abdomen not distended Percussion/Palpation: + abdomen tender (minimal TTP) and abdomen soft; no guarding Psychiatric: Orientation: alert and oriented x 3 Results & Data Vital Signs (Past 12 Hours) Vital Signs Temp Pulse Resp BP Pulse Ox O2 Del Method 02/11/25 07:57 36.4 C L 69 16 118/54 L 95 Room Air Laboratory Results wbc 14.72 PG Care Time/CCT Total # of Minutes Spent Total Time Spent with Patient: Total time spent is greater than 50% in coordination of care (as documented) at patient's floor/unit and/or counseling patient: Coding Level of Care Code 92787 SUB INP/OBS CARE 12/08MIN Diagnoses SBO (small bowel obstruction) K56.609
[2025-02-11] MEDS: ONDANSETRON INJ 2 MG/ML 2 ML VIAL IV PRN (16:12)
[2025-02-11] MEDS: FAMOTIDINE 20MG IV PUSH 20 MG/5 ML SYR IV PRN (21:21)
[2025-02-11] MEDS: MoRPHine SULFATE 4 MG/ML 1 ML CARP\\VIAL IV PRN (22:38)
[2025-02-11] MEDS: PROCHLORPERAZINE 5 MG in SYRINGE 4 ML IV ONE (23:21)
[2025-02-12] MEDS: PROCHLORPERAZINE 5 MG in SYRINGE 4 ML IV ONE (03:42)
[2025-02-12 07:30] LABS: Basophils # (auto) 0.04 K/uL (0.00-0.20); Basophils % (auto) 0.3 %; Eosinophils # (auto) 0.08 K/uL (0.00-0.50); Eosinophils % (auto) 0.6 %; Hematocrit (blood only) 42.7 % (42.0-52.0); Hemoglobin 14.6 g/dl (14.0-18.0); Immature Granulocytes # (auto) 0.08 K/uL (0.01-0.20); Immature Granulocytes % (auto) 0.6 %; Lymphocytes # (auto) 1.05 K/uL (1.20-3.40); Lymphocytes % (auto) 7.4 %; Mean Corpuscular Hemoglobin 34.8 pg (25.0-34.0); Mean Corpuscular Hgb Conc 34.2 g/dL (32.0-36.0); Mean Corpuscular Volume 101.9 fL (80.0-100.0); Mean Platelet Volume 10.5 fL (9.4-12.4); Monocytes # (auto) 1.09 K/uL (0.11-0.59); Monocytes % (auto) 7.7 %; Neutrophils # (auto) 11.76 K/uL (1.40-6.50); Neutrophils % (auto) 83.4 %; Platelet Count 140 K/uL (130-400); RDW Coefficient of Variation 13.2 % (11.5-14.5); RDW Standard Deviation 50.5 fL (36.4-46.3); Red Blood Count 4.19 M/uL (4.70-6.10)
[2025-02-12 07:55] LABS: BUN Creatinine Ratio 16.8 (10-20); Calcium 8.9 mg/dl (8.6-10.3); Creatinine Clr Calc Pharmacy 56.6 ml/min; Magnesium 1.9 mg/dl (1.7-2.4); Potassium 4.4 mmol/L (3.5-5.1)
--- NOTE | 2025-02-12 08:32 | Surgery Progress Note ---
<Statement entered by Joel Zambrano DO - 02/12/25 11:27> I have seen and examined this patient this am and I agree with this plan Date of Service February 12, 2025 Assessment & Plan (1) SBO (small bowel obstruction): Plan (1) SBO (small bowel obstruction): Plan The patient is a 74-year-old male with a past medical history including GERD, diabetes mellitus type 2, depression, BPH, and sensorineural hearing loss. He presents to the emergency department due to midsternal chest pain/burning, and vomiting. Workup in the emergency department included a CT scan of abdomen pelvis which showed a small bowel obstruction. The patient was referred to the [facility] service for further evaluation and treatment, and was seen by general surgery while in the emergency department. Leukocytosis is resolving, patient is afebrile. KUB FINDINGS: Persistent small bowel obstruction with dilated air-filled loops of small bowel measuring up to 4.8 cm. Findings have mildly progressed. Plan to start NG and monitor symptoms. Continue NPO until patient is passing more flatus Continue PT for ambulation May start clear liquids when he is passing good gas and there is relief of his abdominal pain. Will follow up tomorrow. Admission and Anticipated Discharge Date Admission Date: February 10, 2025 Subjective pt seen and examined this am in chair beside bed. He endorses mild nausea but no vomiting. Has not passed flatus today no BM today. Abdominal pain consistent with previous days. Has not had an appetite. Review of Systems Review of Systems: All systems reviewed and are unremarkable except as noted in HPI Physical Exam Constitutional: no acute distress, not ill appearing, not in distress and not diaphoretic Respiratory: normal respiratory effort; no respiratory distress, no labored breathing and does not use accessory muscles Gastrointestinal (Abdomen): Inspection/Auscultation: + abdomen distended Percussion/Palpation: + abdomen tender (moderate tenderness in LUQ); no guarding absent bowel sounds Psychiatric: Orientation: alert and oriented x 3 Results & Data Vital Signs (Past 12 Hours) Vital Signs Temp Pulse Resp BP Pulse Ox O2 Del Method 02/12/25 06:53 36 C L 80 14 136/76 91 Room Air 02/11/25 21:40 Room Air
--- NOTE | 2025-02-12 09:28 | XRay Report ---
KUB HISTORY: Acute onset abdominal pain with reported obstruction eval sbo COMPARISON: CT 02/10/2025 FINDINGS: Persistent small bowel obstruction with dilated air-filled loops of small bowel measuring u p to 4.8 cm. Findings have mildly progressed. No renal calculi. No ureteral calculi. No pneumoperito neum or pneumatosis. Lumbar levoscoliosis with multilevel degenerative changes. No fracture. IMPRESSION: Persistent small bowel obstruction with progressive small bowel dilation. ACT 112: Negative or not required by law. The above report was generated using voice recognition software. It may contain grammatical, syntax o r spelling errors. Electronically signed by: Jeremías Mariee M.D. 02/12/2025 9:27 AM
--- NOTE | 2025-02-12 09:39 | Hospitalist Progress Note ---
Date of Service February 12, 2025 Assessment & Plan (1) Small bowel obstruction: (2) Leukocytosis: (3) Diabetes mellitus, type 2: Plan Patient is a 74 y/o male with a PMHx of GERD, T2DM, depression, BPH, sensorineural hearing loss. He presented to the ED due to mid sternal chest pain/ burning and vomiting. He was found to have a SBO. General surgery team is consulted and patient is being admitted to the hospitalist service. On admission, CT showed dilated small bowel loops concerning for small bowel obstruction, small amount of free fluid in abd and pelvis, no free air or abscess. Patient was made NPO, encouraged ambulation. Patient was experiencing worsening abdominal pain this AM, KUB was ordered and showing worsening small bowel dilation. NG tube was placed. #SBO/leukocytosis last BM 02/10/25 1100; No flatus since 02/10 N.P.O. status, Continue IVF with LR at 80 ml/hr IV Protonix BID IV Tylenol scheduled for pain control, IV morphine prn for breakthrough pain IV Zofran as needed IV pepcid BID PRN General Surgery following NG tube placed 02/12/25. KUB for placement #T2DM Controlled on semaglutide at home; hold Most recent A1C 5.6 11/2024 defer insulin use as only prediabetic and using for weight loss BSG ACHS if eating, q6h if npo Chronic stable diagnoses: BPH - continue dutasteride, monitor for obstruction, bladder scan prn HLD - hold statin Depression - hold escitalopram VTE ppx: SCDs, defer chemical ppx as may require surgical intervention Diet: NPO Dispo: Med surg Admission and Anticipated Discharge Date Admission Date: February 10, 2025 Supervising Physician Co-Signing Physician Notes Patient was seen and examined independently I discussed the case with Jeanine MOTA I reviewed pertinent past medical social family history and also the plan of care and agree with the plan of care. Patient not thrilled with the NG tube having a rhinitis because of it was very uncomfortable putting it in KUB shows placement surgery is following. Abdomen remains distended high-pitched bowel sounds and tympanitic Physical exam awake alert appropriate. Abdomen as described above Assessment plan is small bowel obstruction with a history of a previous inguinal hernia repair, general surgery is employing watchful waiting. Continue IV fluids prevent dehydration. If prolonged may consider PPN peripherally. Pain control with parenteral pain medications and nausea medication was antinausea meds Any exceptions will be noted below Subjective Patient is a 74 year old male with medical history of Type 2 diabetes mellitus, well controlled, HLD, BPH, Vitamin D deficiency, Vitamin b12 deficiency, Cerebral Microvascular disease who presented to ED on 02/10 with abdomi nal/substernal pain, nausea, vomiting and was found to have SBO. He has history of right inguinal hernia repair approximately 20 years ago, no other abdominal surgeries. He has history of colon polyps, states he is due for colonoscopy in the fall. He reported worsening abdominal pain this morning, repeat KUB was ordered and revealed worsening small bowel dilation. He reports abdominal pain is waxing and waning, better with pepcid and protonix, denies aggravating factors. He has remained NPO. He reports nausea, denies vomiting, diarrhea. He additionally denies fevers/chills, headache, vision change, trouble swallowing, melena, hematochezia, hematemesis, polyuria, dysuria, difficulty urinating, numbness/tingling/weakness. He has been ambulating around room and in the bain. He reports no flatus or BM since 02/10/25. Review of Systems Review of Systems: see HPI Physical Exam Physical Exam: General: no acute distress; non-toxic appearing; well-nourished; cooperative HEENT: normocephalic, atraumatic; no scleral icterus; PERRLA w/ EOMs intact; vision and hearing grossly intact Neck: supple; no lymphadenopathy; trachea midline Skin: warm, dry without signs of tenting; no cyanosis; no rashes, bruising, lesions, or erythema noted CV: chest wall NTP; RRR; S1/S2 normal; no murmurs/rubs/gallops; pulses intact and symmetric at radial, DP, and PT Lungs: no acute respiratory distress; symmetrical chest wall expansion; clear breath sounds across all lung wood w/o adventitious sounds; no wheezing, rales, rhonchi ABD: (+) Abdomen distended Hypoactive BS present; (+) tenderness to palpation in central abdomen. no rebound/guarding; MSK: no tics or fasciculations; no edema noted in the LEs b/l, nonerythematous Neuro: A&Ox3; normal mood and affect; fluent speech; no focal deficits; sensation grossly intact in the LEs b/l Results & Data Results & Data Vital Signs (Past 12 Hours) Vital Signs Temperature, Heart rate, Respiratory rate, Blood pressure, Oxygen saturation reviewed. Temp Pulse Resp BP Pulse Ox O2 Del Method 02/12/25 06:53 96.8 F L 80 14 136/76 91 Room Air 02/11/25 21:40 Room Air Laboratory Results CBC, BMP, Magnesium reviewed Diagnostic Findings KUB x 2 reviewed PG Care Time/CCT Total # of Minutes Spent Total Time Spent with Patient: Total time spent is greater than 50% in coordination of care (as documented) at patient's floor/unit and/or counseling patient: Coding Level of Care Code None Diagnoses Small bowel obstruction K56.609 Leukocytosis D72.829 Diabetes mellitus, type 2 E11.9
--- NOTE | 2025-02-12 13:50 | XRay Report ---
KUB HISTORY: Status post placement of an enteric tube NG tube placement COMPARISON: 02/12/2025 FINDINGS: Persistent small bowel obstruction with dilated air-filled loops of small bowel measuring u p to 5.4 cm, previously 4.8 cm. Distal tip of enteric tube projected superiorly within the region of the gastric fundus. No renal calculi. No ureteral calculi. No pneumoperitoneum or pneumatosis. No fr acture. IMPRESSION: Persistent small bowel obstruction with distal tip of enteric tube projected over the gastric fundus. ACT 112: Negative or not required by law. The above report was generated using voice recognition software. It may contain grammatical, syntax o r spelling errors. Electronically signed by: Jeremías Mariee M.D. 02/12/2025 1:49 PM
--- NOTE | 2025-02-12 17:32 | Billing Data ---
Date of Service February 12, 2025 Coding Level of Care Code 98195 SUB INP/OBS CARE
[2025-02-12] MEDS: KETOROLAC TROMETHAMINE 15 MG/ML VIAL IV ONE (18:41)
[2025-02-12] MEDS: LIDOCAINE 5% 1 PATCH TD STA (18:49)
--- NOTE | 2025-02-13 06:47 | Surgery Progress Note ---
<Statement entered by Joel Zambrano DO - 02/13/25 14:21> I have seen and examined this patient this am. He admits to decreased abdominal pain, indigestion and is not yet passing flatus. Cont current management. His abdomen is non-tender this am. Date of Service February 13, 2025 Assessment & Plan (1) SBO (small bowel obstruction): Plan (1) SBO (small bowel obstruction): Plan The patient is a 74-year-old male with a past medical history including GERD, diabetes mellitus type 2, depression, BPH, and sensorineural hearing loss. He presents to the emergency department due to midsternal chest pain/burning, and vomiting. Workup in the emergency department included a CT scan of abdomen pelvis which showed a small bowel obstruction. [facility] and [facility], and was seen by general surgery while in the emergency department. Leukocytosis is resolving, patient is afebrile. 02/12 KUB FINDINGS: Persistent small bowel obstruction with dilated air-filled loops of small bowel measuring up to 4.8 cm. Findings have mildly progressed. 02/13 KUB FINDINGS: The tip of the nasogastric tube is within the gastric fundus. Multiple loops of moderately dilated small bowel measure up to 5.5 cm in caliber. Dilatation is similar to prior exam. Sensitivity for detection of free air is diminished on supine exam but none is identifie Continue on NG and monitor symptoms. Continue NPO until patient is passing more flatus Continue ambulation Plan to start clear liquids when he is passing good gas and there is relief of his abdominal pain. Will follow up tomorrow. Admission and Anticipated Discharge Date Admission Date: February 10, 2025 Subjective He endorses mild nausea yesterday during the day, but none today. No vomiting. Has not passed flatus today no BM today, last BM was Tuesday morning (said it was 'very large'). He mentions that he has had chronic constipation since starting Ozempic last year, not having a BM a few days after a large BM is his baseline. He said his abdominal pain feels better compared to yesterday. Tolerating NG tube. Has not had an appetite. Ambulating well. Review of Systems Review of Systems: All systems reviewed and are unremarkable except as noted in HPI Physical Exam Constitutional: no acute distress, not ill appearing, not in distress and not diaphoretic Respiratory: normal respiratory effort; no respiratory distress, no labored breathing and does not use accessory muscles Gastrointestinal (Abdomen): Percussion/Palpation: + abdomen tender (moderate tenderness across upper abdomen, worse in LUQ) and abdomen soft; no guarding Psychiatric: Orientation: alert and oriented x 3 Results & Data Vital Signs (Past 12 Hours) Vital Signs Temp Pulse Resp BP Pulse Ox O2 Del Method 02/12/25 20:03 36.8 C 76 16 149/75 H 93 Room Air PG Care Time/CCT Total # of Minutes Spent Total Time Spent with Patient: Total time spent is greater than 50% in coordination of care (as documented) at patient's floor/unit and/or counseling patient: Coding Level of Care Code 60689 SUB INP/OBS CARE 12/08MIN Diagnoses SBO (small bowel obstruction) K56.609
[2025-02-13 07:56] LABS: Basophils # (auto) 0.04 K/uL (0.00-0.20); Basophils % (auto) 0.4 %; Eosinophils # (auto) 0.24 K/uL (0.00-0.50); Eosinophils % (auto) 2.1 %; Hematocrit (blood only) 41.3 % (42.0-52.0); Hemoglobin 14.1 g/dl (14.0-18.0); Immature Granulocytes # (auto) 0.04 K/uL (0.01-0.20); Immature Granulocytes % (auto) 0.4 %; Lymphocytes # (auto) 1.11 K/uL (1.20-3.40); Lymphocytes % (auto) 9.8 %; Mean Corpuscular Hemoglobin 34.9 pg (25.0-34.0); Mean Corpuscular Hgb Conc 34.1 g/dL (32.0-36.0); Mean Corpuscular Volume 102.2 fL (80.0-100.0); Mean Platelet Volume 10.4 fL (9.4-12.4); Monocytes # (auto) 0.89 K/uL (0.11-0.59); Monocytes % (auto) 7.9 %; Neutrophils # (auto) 8.99 K/uL (1.40-6.50); Neutrophils % (auto) 79.4 %; Platelet Count 114 K/uL (130-400); RDW Coefficient of Variation 13.1 % (11.5-14.5); RDW Standard Deviation 50.2 fL (36.4-46.3); Red Blood Count 4.04 M/uL (4.70-6.10); White Blood Count 11.31 K/ul (4.8-10.8)
[2025-02-13 08:11] LABS: BUN Creatinine Ratio 16.3 (10-20); Calcium 8.8 mg/dl (8.6-10.3); Creatinine Clr Calc Pharmacy 50.6 ml/min; Potassium 4.2 mmol/L (3.5-5.1)
--- NOTE | 2025-02-13 09:11 | XRay Report ---
KUB CLINICAL HISTORY: Small bowel obstruction. COMPARISON STUDY: CT of the abdomen and pelvis February 10, 2025. KUB February 12, 2025. FINDINGS: The tip of the nasogastric tube is within the gastric fundus. Multiple loops of moderately dilated small bowel measure up to 5.5 cm in caliber. Dilatation is similar to prior exam. Sensitivity for detection of free air is diminished on supine exam but none is identified. IMPRESSION: Persistent small bowel obstruction. ACT 112: Negative or not required by law. Electronically signed by: Aman Lopez M.D. 02/13/2025 9:09 AM
[2025-02-13] MEDS: MoRPHine SULFATE 2 MG/ML CARP IV PRN (11:14)
[2025-02-13] MEDS ORDERED: ALUMINUM/MAGNESIUM SUSP 30 ML UDC PO PRN (14:19)
--- NOTE | 2025-02-13 14:19 | Hospitalist Progress Note ---
Date of Service February 13, 2025 Assessment & Plan (1) Small bowel obstruction: (2) Leukocytosis: (3) Back pain: (4) Diabetes mellitus, type 2: Plan Patient is a 74 y/o male with a PMHx of GERD, T2DM, depression, BPH, sensorineural hearing loss. He presented to the ED due to mid sternal chest pain/ burning and vomiting. He was found to have a SBO. General surgery team is consulted and patient is being admitted to the hospitalist service. On admission, CT showed dilated small bowel loops concerning for small bowel obstruction, small amount of free fluid in abd and pelvis, no free air or abscess. Patient was made NPO, encouraged ambulation. Patient was experiencing worsening abdominal pain this AM, KUB was ordered and showing worsening small bowel dilation. NG tube was placed. #SBO/leukocytosis last BM 02/10/25 1100; No flatus since 02/10 N.P.O. status, Continue IVF with LR at 80 ml/hr IV Protonix BID and IV pepcid BID, IV Tylenol scheduled for pain control, IV morphine prn for breakthrough pain IV Zofran as needed General Surgery following NG tube placed 02/12/25. KUB today with persistent SBO and small bowel dilation Encouraged ambulation. Communication order placed for ambulation with senior it assistant at least three times daily Leukocytosis improved. WBC count 11 today from 14 yesterday. Patient is NPO but will add PRN Maalox as patient still having bothersome GERD symptoms despite IV protonix BID and IV pepcid BID- discussed with supervising physician Back pain right sided SI joint pain without radiculopathy received 1 time dose toradol 10mg 02/12/25 continue lidoderm patch and heat therapy PRN #Type 2 Diabetes Mellitus, controlled, without shelter use of insulin Controlled on semaglutide at home; hold Most recent A1C was 5.6 in 11/2024 defer insulin use as glucose well controlled; was using ozempic for weight loss BSG ACHS if eating, q6h if npo Chronic stable diagnoses: BPH - continue dutasteride, monitor for obstruction, bladder scan prn HLD - hold statin Depression - hold escitalopram VTE ppx: SCDs, defer chemical ppx as may require surgical intervention Diet: NPO Dispo: Med surg Admission and Anticipated Discharge Date Admission Date: February 10, 2025 Supervising Physician Co-Signing Physician Notes The patient was not seen by me. The chart was reviewed. Case discussed with MY Fuller. Agree with assessment and plan Subjective Patient is a 74 year old male with medical history of Type 2 diabetes mellitus, well controlled, HLD, BPH, Vitamin D deficiency, Vitamin b12 deficiency, Cerebral Microvascular disease who presented to ED on 02/10 with abdominal/substernal pain, nausea, vomiting and was found to have SBO. He has history of right inguinal hernia repair approximately 20 years ago, no other abdominal surgeries. He has history of colon polyps, states he is due for colonoscopy in the fall. He reports heartburn, bloating, central abdominal pain, repeat KUB was ordered and revealed persistent small bowel obstruction and unchanged small bowel dilation that is unchanged from yesterday. He has remained NPO and is urinating well. He reports slight dry mouth that is improved with ice chips. He had NG tube placed yesterday. He has had no flatus or BM since 02/10/25. He has been ambulating around room and in the bain, did not ambulate much yesterday as he was fatigued. He is receiving PT/OT. He denies nausea, vomiting, diarrhea, fevers/chills, headache, vision change, trouble swallowing, melena, hematochezia, hematemesis, polyuria, dysuria, difficulty urinating, numbness/tingling/weakness. Yesterday evening, he reported right sided low back pain, non radiating. He states it is worse with prolonged lying and sitting. He reports history of "slipped disc" and states symptoms feel similar. On exam, he had tenderness to palpation of right SI joint, no CVA tenderness. He was given 1 dose of toradol 10mg, lidoderm patch, and heat therapy. He reports improvement in back pain with patch and was able to sleep. Review of Systems Review of Systems: see HPI Physical Exam Physical Exam: General: no acute distress; non-toxic appearing; well-nourished; cooperative HEENT: normocephalic, atraumatic; no scleral icterus; PERRLA w/ EOMs intact; vision and hearing grossly intact Neck: supple; no lymphadenopathy; trachea midline Skin: warm, dry without signs of tenting; no cyanosis; no rashes, bruising, lesions, or erythema noted CV: chest wall NTP; RRR; S1/S2 normal; no murmurs/rubs/gallops; pulses intact and symmetric at radial, DP, and PT Lungs: no acute respiratory distress; symmetrical chest wall expansion; clear breath sounds across all lung wood w/o adventitious sounds; no wheezing ABD: (+) abdomen distended . (+) hypoactive BS present; (+) central abdomen tender to palpation; no rebound/guarding; No CVA tenderness MSK: no tics or fasciculations; no edema noted in the LEs b/l, nonerythematous Neuro: A&Ox3; normal mood and affect; fluent speech; no focal deficits; sensation grossly intact in the LEs b/l Results & Data Results & Data Vital Signs (Past 12 Hours) Vital Signs Temperature, Heart rate, Respiratory rate, Blood pressure, Oxygen saturations reviewed Temp Pulse Resp BP Pulse Ox O2 Del Method 02/13/25 07:18 97.9 F 73 18 156/74 H 94 Room Air Laboratory Results CBC, BMP reviewed Diagnostic Findings KUB reviewed PG Care Time/CCT Total # of Minutes Spent Total Time Spent with Patient: Total time spent is greater than 50% in coordination of care (as documented) at patient's floor/unit and/or counseling patient: Coding Level of Care Code None Diagnoses Small bowel obstruction K56.609 Leukocytosis, unspecified type D72.829 Leukocytosis type: unspecified Back pain M54.9 Diabetes mellitus, type 2 E11.9 Diabetes mellitus shelter insulin use: without shelter use (2) Leukocytosis Leukocytosis type: unspecified Qualified Code(s): D72.829 - Elevated white blood cell count, unspecified (4) Diabetes mellitus, type 2 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
[2025-02-13] MEDS: FAMOTIDINE 20MG IV PUSH 20 MG/5 ML SYR IV SCH (20:08)
[2025-02-14] MEDS: LACTATED RINGER'S 1,000 ML IV STA (02:14)
[2025-02-14 07:10] LABS: Basophils # (auto) 0.04 K/uL (0.00-0.20); Basophils % (auto) 0.4 %; Eosinophils # (auto) 0.25 K/uL (0.00-0.50); Eosinophils % (auto) 2.6 %; Hematocrit (blood only) 36.8 % (42.0-52.0); Hemoglobin 12.4 g/dl (14.0-18.0); Immature Granulocytes # (auto) 0.03 K/uL (0.01-0.20); Immature Granulocytes % (auto) 0.3 %; Lymphocytes # (auto) 0.91 K/uL (1.20-3.40); Lymphocytes % (auto) 9.5 %; Mean Corpuscular Hemoglobin 34.6 pg (25.0-34.0); Mean Corpuscular Hgb Conc 33.7 g/dL (32.0-36.0); Mean Corpuscular Volume 102.8 fL (80.0-100.0); Mean Platelet Volume 10.7 fL (9.4-12.4); Monocytes # (auto) 0.67 K/uL (0.11-0.59); Neutrophils # (auto) 7.71 K/uL (1.40-6.50); Neutrophils % (auto) 80.2 %; Platelet Count 111 K/uL (130-400); RDW Coefficient of Variation 12.8 % (11.5-14.5); RDW Standard Deviation 48.5 fL (36.4-46.3); Red Blood Count 3.58 M/uL (4.70-6.10); White Blood Count 9.61 K/ul (4.8-10.8)
[2025-02-14] MEDS: bisacodyL 10 MG SUPP PR STA (09:26)
--- NOTE | 2025-02-14 09:33 | XRay Report ---
KUB HISTORY: eval SBO COMPARISON STUDY: 02/13/2025 FINDINGS: Since a study of one day ago, several loops of mid abdominal small bowel remain distended a lthough the amount of distention has diminished when compared with the previous study. Scattered gas is identified in nondistended colon. There is no evidence of bowel wall thickening. The nasogastric t ube is better positioned with the tip now near the gastric antrum. IMPRESSION: Small bowel obstruction improving with less distention when compared with the prior exami nation. ACT 112: Negative or not required by law. The above report was generated using voice recognition software. It may contain grammatical, syntax o r spelling errors. Electronically signed by: Marcelina Mckeon M.D. 02/14/2025 9:31 AM
--- NOTE | 2025-02-14 10:01 | Surgery Progress Note ---
<Statement entered by Joel Zambrano DO - 02/14/25 10:22> I have seen and examined this patient this am as well as reviewed his KUB and I agree with this plan. There is now air into the colon. continue aggressive ambulation. Date of Service February 14, 2025 Assessment & Plan (1) SBO (small bowel obstruction): Plan (1) SBO (small bowel obstruction): Plan The patient is a 74-year-old male with a past medical history including GERD, diabetes mellitus type 2, depression, BPH, and sensorineural hearing loss. He presents to the emergency department due to midsternal chest pain/burning, and vomiting. Workup in the emergency department included a CT scan of abdomen pelvis which showed a small bowel obstruction. [facility] and [facility], and was seen by general surgery while in the emergency department. Leukocytosis is resolving, patient is afebrile. 02/12 KUB findings: Persistent small bowel obstruction with dilated air-filled loops of small bowel measuring up to 4.8 cm. Findings have mildly progressed. 02/13 KUB findings: The tip of the nasogastric tube is within the gastric fundus. Multiple loops of moderately dilated small bowel measure up to 5.5 cm in caliber. Dilatation is similar to prior exam. Sensitivity for detection of free air is diminished on supine exam but none is identified Continue on NG and monitor symptoms. Plan to continue to suction NG, assure that nursing staff is supporting the patient and checking the suction is correctly hooked up. Plan to repeat KUB. Continue NPO until patient is passing more flatus Continue ambulation Plan to start clear liquids when he is passing good gas and there is relief of his abdominal pain. Will follow up tomorrow. Admission and Anticipated Discharge Date Admission Date: February 10, 2025 Subjective Still has not passed flatus today, he said that he has had none since being in the hospital, he has been only belching. He feels that his abdomen is the most bloated today. No BM today, last BM was Tuesday morning. He said his abdominal pain feels about the same as yesterday. Tolerating NG tube. Has not had an appetite. Ambulating well. Review of Systems Review of Systems: All systems reviewed and are unremarkable except as noted in HPI Physical Exam Constitutional: no acute distress, not ill appearing, not in distress and not diaphoretic Respiratory: normal respiratory effort; no respiratory distress, no labored br eathing and does not use accessory muscles Gastrointestinal (Abdomen): Inspection/Auscultation: + abdomen distended Percussion/Palpation: + abdomen tender (moderate tenderness around umbilicus, across upper abdomen, worse in LUQ) and abdomen soft; no guarding Psychiatric: Orientation: alert and oriented x 3 Results & Data Vital Signs (Past 12 Hours) Vital Signs Temp Pulse Resp BP Pulse Ox O2 Del Method 02/14/25 07:20 36.4 C L 87 16 174/78 H 93 Room Air PG Care Time/CCT Total # of Minutes Spent Total Time Spent with Patient: Total time spent is greater than 50% in coordination of care (as documented) at patient's floor/unit and/or counseling patient: Coding Level of Care Code 09706 SUB INP/OBS CARE 12/08MIN Diagnoses SBO (small bowel obstruction) K56.609
[2025-02-14 10:29] LABS: BUN Creatinine Ratio 19.7 (10-20); Calcium 8.5 mg/dl (8.6-10.3); Creatinine Clr Calc Pharmacy 61.4 ml/min; Potassium 4.1 mmol/L (3.5-5.1)
[2025-02-14 12:10] LABS: Magnesium 1.8 mg/dl (1.7-2.4)
[2025-02-14] MEDS: LACTATED RINGER'S 1,000 ML IV SCH (18:21)
[2025-02-14] MEDS: LIDOCAINE 5% 1 PATCH TD SCH (18:24)
--- NOTE | 2025-02-14 20:12 | Hospitalist Progress Note ---
Date of Service February 14, 2025 Assessment & Plan (1) Small bowel obstruction: (2) Leukocytosis: (3) Thrombocytopenia: (4) Back pain: (5) Diabetes mellitus, type 2: Plan Patient is a 74 y/o male with a PMHx of GERD, T2DM, depression, BPH, sensorineural hearing loss. He presented to the ED due to mid sternal chest pain/ burning and vomiting. He was found to have a SBO. General surgery team is consulted and patient is being admitted to the hospitalist service. On admission, CT showed dilated small bowel loops concerning for small bowel obstruction, small amount of free fluid in abd and pelvis, no free air or abscess. Patient was made NPO, encouraged ambulation. Patient was experiencing worsening abdominal pain this AM, KUB was ordered and showing worsening small bowel dilation. NG tube was placed. #SBO/leukocytosis last BM 02/10/25 1100; Passing flatus today N.P.O. status, Continue IVF with LR at 80 ml/hr IV Protonix BID and IV pepcid BID, IV Tylenol scheduled for pain control, IV morphine prn for breakthrough pain IV Zofran as needed General Surgery following NG tube placed 02/12/25. KUB today with improved SBO and bowel dilation. Encouraged ambulation. Communication order placed for ambulation with assistant professor of surgery at least three times daily Leukocytosis resolved. WBC count 9 from 11 yesterday Thrombocytopenia appears to be chronic platelet count 111 today continue monitoring while inpatient outpatient PCP f/u upon discharge Back pain right sided SI joint pain without radiculopathy received 1 time dose toradol 10mg 02/12/25 continue lidoderm patch and heat therapy PRN #Type 2 Diabetes Mellitus, controlled, without terminal carman use of insulin Controlled on semaglutide at home; hold Most recent A1C was 5.6 in 11/2024 defer insulin use as glucose well controlled; was using ozempic for weight loss BSG ACHS if eating, q6h if npo Chronic stable diagnoses: BPH - continue dutasteride, monitor for obstruction, bladder scan prn HLD - hold statin Depression - hold escitalopram VTE ppx: SCDs, defer chemical ppx as may require surgical intervention Diet: NPO Dispo: Med surg Admission and Anticipated Discharge Date Admission Date: February 10, 2025 Supervising Physician Co-Signing Physician Notes The patient was not seen by me. The chart was reviewed. Case discussed with MY Fuller. Agree with assessment and plan Subjective Patient is a 74-year-old male who is currently admitted with a small bowel obstruction. NG tube in place. KUB was obtained today and is showing improvement in small bowel obstruction. Patient has passed gas today. No BM yet. He continues to report abdominal pain that is unchanged. He is ambulating multiple times per day. He currently denies headache, vision change, dizziness, fever/chills, sore throat, nausea, vomiting, diarrhea. He states he is urinating well, about 4 times per day. He reports history of BPH, takes dutasteride nightly. He reports Lidoderm patch did not improve back pain and helped him sleep. Labs were significant for resolved leukocytosis, but does have thrombocytopenia which appears to be chronic. Patient is unaware of the cause, but does report that he was a previous alcoholic and has been sober for 5 years. He denies any history of liver disease or cirrhosis. He denies ever seeing a specialist or having a workup for thrombocytopenia. He denies any bleeding, bruising, rash. Review of Systems Review of Systems: see HPI Physical Exam Physical Exam: General: no acute distress; non-toxic appearing; well-nourished; cooperative HEENT: normocephalic, atraumatic; no scleral icterus; PERRLA w/ EOMs intact; vision and hearing grossly intact Neck: supple; no lymphadenopathy; trachea midline Skin: warm, dry without signs of tenting; no cyanosis; no rashes, bruising, lesions, or erythema noted CV: chest wall NTP; RRR; S1/S2 normal; no murmurs/rubs/gallops; pulses intact and symmetric at radial, DP, and PT Lungs: no acute respiratory distress; symmetrical chest wall expansion; clear breath sounds across all lung wood w/o adventitious sounds; no wheezing ABD: (+) abdomen distended but softer than yesterday . (+) hypoactive BS present; (+) central abdomen tender to palpation; no rebound/guarding; No CVA tenderness MSK: no tics or fasciculations; no edema noted in the LEs b/l, nonerythematous Neuro: A&Ox3; normal mood and affect; fluent speech; no focal deficits; sensation grossly intact in the LEs b/l Results & Data Results & Data Vital Signs (Past 12 Hours) Vital Signs Temperature, heart rate, respiratory rate, blood pressure, oxygen saturations reviewed Temp Pulse Resp BP Pulse Ox O2 Del Method 02/14/25 19:47 97.4 F L 74 16 160/72 H 95 Room Air 02/14/25 14:25 98.2 F 90 16 150/64 H 95 Room Air Laboratory Results CBC, BMP reviewed Diagnostic Findings KUB reviewed PG Care Time/CCT Total # of Minutes Spent Total Time Spent with Patient: Total time spent is greater than 50% in coordination of care (as documented) at patient's floor/unit and/or counseling patient: Coding Level of Care Code None Diagnoses Small bowel obstruction K56.609 Leukocytosis, unspecified type D72.829 Leukocytosis type: unspecified Thrombocytopenia D69.6 Back pain M54.9 Diabetes mellitus, type 2 E11.9 Diabetes mellitus terminal carman insulin use: without care home use (2) Leukocytosis Leukocytosis type: unspecified Qualified Code(s): D72.829 - Elevated white blood cell count, unspecified (5) Diabetes mellitus, type 2 Diabetes mellitus terminal carman insulin use: without terminal carman use
[2025-02-14] MEDS: FINASTERIDE 5 MG TAB PO SCH (20:42)
--- NOTE | 2025-02-15 08:30 | Hospitalist Progress Note ---
Date of Service February 15, 2025 Assessment & Plan (1) Small bowel obstruction: (2) Leukocytosis: (3) Thrombocytopenia: (4) Back pain: (5) Diabetes mellitus, type 2: Plan Patient is a 74 y/o male with a PMHx of GERD, T2DM, depression, BPH, sensorineural hearing loss. He presented to the ED due to mid sternal chest pain/ burning and vomiting. He was found to have a SBO. General surgery team is consulted and patient is being admitted to the hospitalist service. On admission, CT showed dilated small bowel loops concerning for small bowel obstruction, small amount of free fluid in abd and pelvis, no free air or abscess. Patient was made NPO, encouraged ambulation. Patient was experiencing worsening abdominal pain this AM, KUB was ordered and showing worsening small bowel dilation. NG tube was placed. #SBO last BM 02/10/25 1100; No flatus since yesterday N.P.O. status, Increase IVF with LR at 100 ml/hr as patient slightly dry IV Protonix BID and IV pepcid BID, IV Tylenol scheduled for pain control, IV morphine prn for breakthrough pain IV Zofran as needed General Surgery following NG tube placed 02/12/25. KUB 02/14/25 with improved SBO and bowel dilation. Encouraged ambulation. Communication order placed for ambulation with mortgage loan assistant at least three times daily Overnight changes: Per nursing note, NG tube with intermittent suction and draining scantly. Patient was c/o bloating and constipation that was improved yesterday with bisacodyl suppository. Around 4:00 am patient reported acute worsening of abdominal pain, did not notify any staff. Repeat KUB this AM with persistent SBO. Surgery following, patient was put on OR schedule for this afternoon for exploratory laparoscopy with possible bowel resection for persistent SBO. NG tube assessment performed afterwards at 10:00 am with irrigation of tube. A "clog" was found per patient. Since then, patient has almost filled the canister with bile in 1 hour. Since then, patient reports a significant improvement in abdominal pain, bloating, gerd sx. I forwarded this information to Patient's Surgeon and STEPHEN who are aware and will reassess patient. Leukocytosis/Thrombocytopenia Leukocytosis present on admission; now resolved. 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 Currently having urine output but reports slow stream, no other sx. Monitor for obstruction, bladder scan and straight cath PRN Depression - hold PO escitalopram VTE ppx: SCDs, defer chemical ppx as may require surgical intervention Diet: NPO Dispo: Med surg Admission and Anticipated Discharge Date Admission Date: February 10, 2025 Supervising Physician Co-Signing Physician Notes The patient was seen by me. The chart was reviewed. Case discussed with MY Pryor. Agree with assessment and plan Subjective Patient is a 74-year-old male who is currently admitted for SBO. General surgery following patient daily. Patient has had NG tube in place since 02/12/25. He is receiving PT/OT, and has increased his ambulation to multiple times daily through the bain on 02/13/25. He remains NPO, on LR at 80 mls/hr for fluid maintenance. KUB obtained yesterday and showing improvement in SBO and small bowel dilation. Patient began to pass gas yesterday afternoon, last BM 02/10/25. Overnight, patient states he developed acute worsening of abdominal pain, bloating, and GERD sx around 4:00 am. He did not notify anyone of his symptoms or use call mcgraw. He was also having little/no output in NG tube. He underwent repeat KUB this AM which revealed persistent SBO, bowel dilation of 5.7 cm from 5.0 cm yesterday. Around 10:00 am today, nurse assessed NG tube and found it to be clogged. NG tube was flushed and patient has almost filled the canister with bile in 1 hour. He states his abdominal pain, bloating, GERD symptoms have drastically improved and that he is feeling much better. He has not ambulated yet today due to pain, plans to ambulate halls with when she arrives at 11:30. He is scheduled for aggressive ambulation at least three times daily to aid in resolution of SBO. He reports dry mouth, does improve some with ice chips. He reports that he has been wearing diaper, had incontinence episode last night. He has history of BPH, was scheduled to continue PO dulistaride on admission, was not given as patient NPO. Patient is urinating regularly, does report slow stream. He has urinated twice this AM. He denies dysuria. He still reports mild central abdominal pain that has improved from this AM, no BM since 02/10 and no flatus since yesterday. He denies N/V. He reports dry mouth, does improve some with ice chips. He additionally reports that he has been wearing adult diaper, had incontinence episode last night. He has history of BPH, was scheduled to continue PO dutasteride on admission, was not given as patient has NG tube. Patient is urinating regularly, does report slow stream. He has urinated twice this AM. He denies dysuria.denies fevers/chills, headache, dizziness, syncope, sore throat, trouble swallowing, CP, SOB, Cough, palpitations, edema, numbness/tingling, weakness, bleeding, bruising, rash. Patient had leukocytosis noted on admission, currently resolved. Asymptomatic and afebrile throughout stay. He received antibiotic therapy with IV Zosyn on admission and was discontinued 02/13/25. During his stay, he developed right-sided SI joint pain that was causing discomfort and difficulty sleeping. He was given Lidoderm patch with improvement. He did receive one-time dose of 10 mg Toradol, he noted some improvement but had elevation in serum creatinine the following day. Currently, reports pain is worse with prolonged laying/sitting and not having enough support with pillows/etc. He has made adjustments with improvement. Pain is stable and intermittent. His platelet count dropped from 140 to 114 on 02/14/24, platelet level 111 yesterday and 116 today. He has history of thrombocytopenia dating back to 2019 and history of alcoholism, reports that has been sober for 5 years. He denies history of liver disease/cirrhosis. He denies prior workup for thrombocytopenia or specialist evaluation. Review of Systems Review of Systems: see HPI Physical Exam Physical Exam: General: no acute distress; non-toxic appearing; well-nourished; cooperative; (+) NG tube in place, NG tube canister almost full of green liquid currently HEENT: normocephalic, atraumatic; no scleral icterus; PERRLA w/ EOMs intact; vision and hearing grossly intact Neck: supple; no lymphadenopathy; trachea midline Skin: warm, dry without signs of tenting; no cyanosis; no rashes, bruising, lesions, or erythema noted CV: chest wall NTP; RRR; S1/S2 normal; no murmurs/rubs/gallops; pulses intact and symmetric at radial, DP, and PT Lungs: no acute respiratory distress; symmetrical chest wall expansion; clear breath sounds across all lung wood w/o adventitious sounds; no wheezing ABD: Abdomen distended but soft. (+) periumbical tenderness to palpation. All other abdominal quadrants nontender. (+) BS present; no rebound/guarding. : No CVA tenderness bilaterally. No suprapubic tenderness. MSK: no tics or fasciculations; no edema noted in the LEs b/l, nonerythematous. Lumbar spine and paraspinals nontender to palpation. SI joints nontender to palpation bilaterally. Strength grossly normal bilaterally. Neuro: A&Ox3; normal mood and affect; fluent speech; no focal deficits; sensation grossly intact in the LEs b/l Results & Data Results & Data Vital Signs (Past 12 Hours) Vital Signs Temperature, heart rate, respiratory rate, blood pressure, oxygen saturations reviewed. Temp Pulse Resp BP Pulse Ox O2 Del Method 02/15/25 07:18 97.3 F L 70 16 175/80 H 95 Room Air Laboratory Results CBC, CMP, Magnesium reviewed. 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
--- NOTE | 2025-02-15 08:41 | XRay Report ---
KUB HISTORY: Acute generalized abdominal pain with small bowel obstruction eval SBO COMPARISON: 02/14/2025 FINDINGS: Distal tip of enteric tube projects over the body. Persistent air-filled dilated loops of s mall bowel measure up to 5.7 cm, previously 5.0 cm. No renal calculi. No ureteral calculi. No pneumo peritoneum or pneumatosis. No fracture. IMPRESSION: Persistent small bowel obstruction. Continued follow-up is needed. ACT 112: Negative or not required by law. The above report was generated using voice recognition software. It may contain grammatical, syntax o r spelling errors. Electronically signed by: Jeremías Mariee M.D. 02/15/2025 8:39 AM
[2025-02-15 11:04] LABS: Basophils # (auto) 0.03 K/uL (0.00-0.20); Basophils % (auto) 0.3 %; Eosinophils # (auto) 0.14 K/uL (0.00-0.50); Eosinophils % (auto) 1.4 %; Hematocrit (blood only) 37.4 % (42.0-52.0); Hemoglobin 13.1 g/dl (14.0-18.0); Immature Granulocytes # (auto) 0.04 K/uL (0.01-0.20); Immature Granulocytes % (auto) 0.4 %; Lymphocytes # (auto) 0.75 K/uL (1.20-3.40); Lymphocytes % (auto) 7.4 %; Mean Corpuscular Hemoglobin 35.9 pg (25.0-34.0); Mean Corpuscular Volume 102.5 fL (80.0-100.0); Mean Platelet Volume 10.6 fL (9.4-12.4); Monocytes # (auto) 0.59 K/uL (0.11-0.59); Monocytes % (auto) 5.8 %; Neutrophils # (auto) 8.55 K/uL (1.40-6.50); Neutrophils % (auto) 84.7 %; Platelet Count 116 K/uL (130-400); RDW Coefficient of Variation 12.7 % (11.5-14.5); RDW Standard Deviation 47.8 fL (36.4-46.3); Red Blood Count 3.65 M/uL (4.70-6.10)
--- NOTE | 2025-02-15 11:30 | Anesthesiology Consultation ---
Date of Service February 15, 2025 Assessment & Plan Chart Review Chart Review: Acceptable Risk for Surgery and Patient NOT seen in Pre Admission Testing History Surgery Operation Date: 02/15/25 09:30 Proposed Procedures p Exploratory Laparoscopy, Possible Exploratory Laparotomy, Possible Bowel Resection - Joel Zambrano DO Height/Weight Height: 6 ft 2 in Weight: 101 kg Allergies Allergy/AdvReac Type Severity Reaction Status Date / Time adhesive Allergy Mild BANDAIDS - Verified 12/03/24 09:15 RED ITCH SKIN latex Allergy Mild from Verified 12/03/24 09:15 allergen testing, skin irriation animal dander Allergy Unknown HORSE - Verified 12/03/24 09:15 from allergen testing Horse/Equine Containing Allergy Unknown UNKNOWN--from Verified 12/03/24 09:15 Products allergen testing No Known Drug Allergies Allergy Verified 12/03/24 09:15 Medications Home Medications Medication Instructions Recorded Confirmed Last Taken multivitamin 1 tab PO QDL 04/12/19 02/10/25 08/06/20 cholecalciferol (vitamin D3) 50 50 mcg PO DAILY 02/04/22 02/10/25 Unknown mcg (2,000 unit) capsule simvastatin 20 mg tablet (Zocor) 20 mg PO PM #90 tabs 02/23/24 02/10/25 Unknown dutasteride 0.5 mg capsule 0.5 mg PO HS 12/03/24 02/10/25 Unknown semaglutide 0.25 mg or 0.5 mg (2 0.5 mg (0.736 mL) subcut .ONCE 12/03/24 02/10/25 Unknown mg/3 mL) subcutaneous pen injector WEEKLY #3 mL escitalopram oxalate 10 mg tablet 30 mg PO UD 02/10/25 02/10/25 Unknown gabapentin 100 mg capsule 100 mg PO UD 02/10/25 02/10/25 Unknown Active Medications Generic Name Dose Route Start Last Admin Trade Name Freq PRN Reason Stop Dose Admin Finasteride 5 mg 02/14/25 21:00 02/14/25 20:42 Finasteride 5 Mg Tab PO 03/16/25 20:59 Not Given QPM KHALIDA Pantoprazole Sodium 40 mg in 10 mls @ 5 mls/min 02/11/25 09:00 02/15/25 09:11 Protonix IV 03/13/25 08:59 5 mls/min BID KHALIDA Administration Famotidine 20 mg in 5 mls @ 2.5 mls/min 02/13/25 21:00 02/15/25 09:11 Pepcid 20mg Iv Push IV 03/15/25 20:59 2.5 mls/min BID KHALIDA Administration Lactated Ringer's 1,000 mls @ 80 mls/hr 02/14/25 16:30 02/15/25 03:39 Lr IV 02/15/25 16:29 80 mls/hr .[id number] KHALIDA Administration Lidocaine 1 patch 02/14/25 18:00 02/15/25 09:01 Lidocaine 5% 1 Patch TD 03/16/25 17:59 Not Given DAILY KHALIDA Miscellaneous 1 each 02/14/25 21:00 02/14/25 21:58 Remove Lidoderm Patch N/A 03/16/25 20:59 1 each DAILY@2100 KHALIDA Administration Morphine Sulfate 2 mg 02/10/25 22:25 02/13/25 20:08 Morphine Sulfate 2 Mg/Ml Carp IV 02/24/25 22:24 2 mg Q6H PRN Administration Moderate Pain (Scale 4, 5, 6) Morphine Sulfate 4 mg 02/10/25 22:25 02/11/25 22:38 Morphine Sulfate 4 Mg/Ml 1 Ml Carp\Vial IV 02/24/25 22:24 4 mg Q6H PRN Administration Severe Pain (Scale 7, 8, 9,10) Ondansetron HCl 4 mg 02/10/25 22:25 02/12/25 06:04 Ondansetron Inj 2 Mg/Ml 2 Ml Vial IV 03/12/25 22:24 4 mg Q6H PRN Administration Nausea And Vomiting Past Medical History Medical History Bilateral tinnitus Osteoarthritis Right sciatic nerve pain GERD (gastroesophageal reflux disease) Diabetes Past Family History Family History Father Alzheimer disease Other Family history non-contributory No family history of adverse response to anesthesia Denies family history of Ovarian cancer Prostate cancer Myocardial infarction Breast cancer Colorectal cancer Past Surgical History Surgical History History of colonoscopy with polypectomy History of arthroscopy of right knee History of right inguinal hernia repair History of oral surgery gum removal History of phacoemulsification of cataract of both eyes with intraocular lens implantation Social History Smoking Status: Never smoker Do You Dip or Chew Tobacco: No Hx Alcohol Use: Yes Alcohol type: wine alcohol intake frequency: 0-2 drinks per day Alcohol Intake Frequency Comment: Port wine last drink 02/09/25 10pm Hx Substance Use: No substance use type: does not use Physical Exam Vital Signs Last Vital Signs Temp 36.3 C L 02/15/25 07:18 Pulse 70 02/15/25 07:18 Resp 16 02/15/25 07:18 BP 175/80 H 02/15/25 07:18 Pulse Ox 95 02/15/25 07:18 O2 Del Method Room Air 02/15/25 07:18 Testing Laboratory Results 02/15/25 10:36 02/15/25 02/14/25 06:02 23:35 POC Glucose 96 89
[2025-02-15 11:39] LABS: Albumin Level 3.6 gm/dl (3.4-5.0); Bilirubin,Total 0.7 mg/dl (0.2-1.0); Calcium 8.4 mg/dl (8.6-10.3); Magnesium 1.9 mg/dl (1.7-2.4); Potassium 4.2 mmol/L (3.5-5.1)
[2025-02-15 11:45] LABS: Albumin Globulin Ratio 1.5 (0.9-2); BUN Creatinine Ratio 17.1 (10-20); Creatinine Clr Calc Pharmacy 69.2 ml/min; Globulin 2.4 gm/dl (2.5-4.0)
[2025-02-15] MEDS ORDERED: bisacodyL 10 MG SUPP PR STA (13:38)
--- NOTE | 2025-02-15 13:47 | Surgery Progress Note ---
Date of Service February 15, 2025 Assessment & Plan (1) SBO (small bowel obstruction): Plan: No urgent indication for surgical intervention however he has now been in the hospital over 4 days. Will order small bowel follow-through. Unusual SBO considering his minimal surgical history. (2) Diabetes mellitus, type 2: Admission and Anticipated Discharge Date Admission Date: February 10, 2025 Subjective Patient seen. Was having worsening pain and distention earlier until it was realized the NG tube was clogged. After irrigating this patient has since had about 1400 cc out and feels much better. Physical Exam Constitutional: WD/WN, vitals as above no acute distress and not ill appearing Eyes: PERRL, conjunctivae normal, anicteric sclerae EOM intact bilaterally ENMT: external ear and nose normal, oropharynx normal Ears: no hearing impairment Neck: trachea midline, no thyromegaly Respiratory: normal respiratory effort; no respiratory distress and does not use accessory muscles Cardiovascular: Rate/Rhythm: regular rate and regular rhythm Gastrointestinal (Abdomen): Soft. Mild distention. No guarding or rebound. 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
[2025-02-15] MEDS ORDERED: Nursing to Pharmacy Communication SCH (15:49)
[2025-02-15] MEDS: bisacodyL 10 MG SUPP PR STA (15:59)
[2025-02-15 19:03] LABS: Appearance Urine Clear (Clear); Bacteria Urine Automated None Seen (None Seen); Bilirubin Urine Negative (Negative); Blood Urine Negative (Negative); Cast Urine Automated 0-2 /lpf (0-2); Color Urine Yellow; Epithelial Cell Urine Auto 0-2 /hpf (0-2); Glucose Urine UA Negative (Negative); Ketones Urine 4+ (Negative); Leukocyte Esterase Urine Negative (Negative); Nitrite Urine Negative (Negative); Protein Urine 1+ (Negative); Specific Gravity Urine 1.025 (1.000-1.030); Urobilinogen Urine Negative (Negative); WBC Urine Automated 0-5 /hpf (0-5)
--- NOTE | 2025-02-16 06:02 | Surgery Progress Note ---
Date of Service February 16, 2025 Assessment & Plan (1) SBO (small bowel obstruction): Plan: Patient has been admitted to the hospitalist service. From surgery perspective we recommend the following: Patient appears to have clinically improved He had a small bowel follow-through x-ray performed yesterday with results pending Will keep n.p.o. for the present time and keep NG tube in place until small bowel follow-through through results are available Consideration may be given either removing or clamping NG tube based on small bowel follow-through results if he continues to have bowel movements Review of medicines show that IV fluids have become discontinuedas patient is n.p.o. with NG tube in place we will reinstitute intravenous fluids (LR at 75 cc/h have been ordered) KUB is ordered for this morning; check when results are available Mobilize as able As above. Doing well. Positive bowel movement. Small bowel follow-through shows contrast to the colon. His NG tube now only has a small amount of clear fluid in it. Abdomen is soft and nontender and less distended. Will remove NG tube and give clear liquids to try. Admission and Anticipated Discharge Date Admission Date: February 10, 2025 Subjective Patient is currently resting comfortably in bed. He notes that previously noted abdominal pain has improved. He denies any nausea or vomiting. He notes that he is having multiple loose bowel movements over the past 12 hours. Physical Exam Gastrointestinal (Abdomen): Abdomen is currently soft without distention. There is minimal pain with palpation. NG tube is in place and over the past 24 hours has drained approximately 2000 cc Results & Data Vital Signs (Past 12 Hours) Vital Signs Temp Pulse Resp BP Pulse Ox O2 Del Method 02/16/25 02:37 36.3 C L 81 18 166/80 H 94 Room Air 02/15/25 20:44 36.4 C L 76 18 175/76 H 94 Room Air PG Care Time/CCT Total # of Minutes Spent Total Time Spent with Patient: Total time spent is greater than 50% in coordination of care (as documented) at patient's floor/unit and/or counseling patient: Coding Level of Care Code 49684 SUB INP/OBS CARE 12/08MIN Diagnoses SBO (small bowel obstruction) K56.609
[2025-02-16] MEDS: LACTATED RINGER'S 1,000 ML IV SCH (06:39)
[2025-02-16] MEDS: ACETAMINOPHEN 1,000 MG/100 ML VIAL IV PRN (07:48)
--- NOTE | 2025-02-16 08:31 | Hospitalist Progress Note ---
Date of Service February 16, 2025 Assessment & Plan (1) Small bowel obstruction: (2) Macrocytic anemia: (3) Thrombocytopenia: (4) Back pain: (5) Diabetes mellitus, type 2: Plan Patient is a 74 y/o male with a PMHx of GERD, T2DM, depression, BPH, sensorineural hearing loss. He presented to the ED due to mid sternal chest pain/ burning and vomiting. He was found to have a SBO. General surgery team is consulted and patient is being admitted to the hospitalist service. On admission, CT showed dilated small bowel loops concerning for small bowel obstruction, small amount of free fluid in abd and pelvis, no free air or abscess. Patient was made NPO, encouraged ambulation. Patient was experiencing worsening abdominal pain this AM, KUB was ordered and showing worsening small bowel dilation. NG tube was placed. Patient had leukocytosis POA, now resolved. He received IV Zofran 02/10-02/13. #SBO last BM - 02/16/25 N.P.O. 02/10 - 02/16 IVF with LR at 100 ml/hr (pt having diarrhea, UA + ketones, weight 101kg) IV Protonix BID and IV pepcid BID, IV Tylenol scheduled for pain control, IV morphine prn for breakthrough pain IV Zofran as needed General Surgery following daily NG tube placed 02/12/25 and removed 02/16/25 Ambulation at least 3x/daily with assistant grocery store manager Small bowel FT study on 02/15/25 with findings consistent with partial SBO, dilated bowel loops 4.7 cm and contrast did reach large bowel KUB 02/16/25 with findings compatible with resolving SBO, dilated bowel loops 4.0 cm Patient started on clear liquid diet today, tolerating well without complication, continue diet advancement per surgery Macrocytic Anemia/Thrombocytopenia Thrombocytopenia appears to be chronic Patient does have hx of alcohol use in past, no elevations in LFTs/bilirubin- TSH, Vitamin B12/Folate ordered today - all WNL Hemoglobin currently 11.8 from 15.8 on admission Fecal occult blood testing ordered to r/o bleeding - patient having black, watery BMs. Platelet count - 107 from 111 yesterday Continue to monitor while inpatient, will need outpatient PCP f/u Back pain right sided SI joint pain without radiculopathy received 1 time dose toradol 10mg 02/12/25, held as creatinine increased slightly. continue to hold until active bleeding r/o continue lidoderm patch and heat therapy PRN tylenol QHS supportive measures #Type 2 Diabetes Mellitus, controlled, without intermediate designer use of insulin Controlled on semaglutide at home; hold Most recent A1C was 5.6 in 11/2024 defer insulin use as glucose well controlled; was using ozempic for weight loss BSG ACHS if eating, q6h if npo Chronic stable diagnoses: BPH - Resume PO dutasteride. Monitor for obstruction, bladder scan and straight cath PRN Depression - Resume PO escitalopram VTE ppx: SCDs, defer chemical ppx until active bleeding r/o Diet: Clear liquids Dispo: Med surg Admission and Anticipated Discharge Date Admission Date: February 10, 2025 Supervising Physician Co-Signing Physician Notes The patient was not seen by me. The chart was reviewed. Case discussed with MY Fuller. Agree with assessment and plan Subjective Patient is a 74 year old male who was admitted to hospital with SBO on 02/10/25. Since last note, his surgery was cancelled for yesterday afternoon. He had continued output into NG tube yesterday. Small bowel FT study performed yesterday afternoon and repeat KUB this morning, both revealing improvement in small bowel obstruction. General surgery is following patient daily. Per note, this morning NG tube canister only had a small amount of clear fluid present and NG tube was removed at 10:45 am today. Patient was then placed on clear liquid diet. Currently, patient reports that he is feeling well. He has decreased abdominal pain, no N/V. He is experiencing bloating, mild cramping in lower abdomen, and has had loose BMs that are watery and black. He reports having BMs at 9:00pm on 02/15, 7:00am, 11:00 am, 1:45 pm. He denies hematochezia. He states he started clear liquid lunch today, tolerated well without symptoms. He states he is urinating regularly, multiple times/day, without difficulty, dysuria, hematuria. He has history of BPH and nightly dutasteride has not been given due to NPO status and NG tube in place. He may resume tonight. He has lower back pain that makes it difficult for him to sleep/get comfortable at night. States he will take tylenol for this at home. Pain medications PRN orders are in place, has not used. Lidoderm patch and heating pad is ordered as well. Encouraged use of patch, heating pad, tylenol QHS. He reports history of alcohol use in the past. He will have a glass of wine on occasion, states this is rare. Last use was a glass of wine 02/09. He additionally denies fevers/chills, headache, dizziness, vision change, weakness, bleeding, bruising, rash, edema. Review of Systems Review of Systems: see HPI Physical Exam Physical Exam: General: no acute distress; non-toxic appearing; well-nourished; cooperative; HEENT: normocephalic, atraumatic; no scleral icterus; PERRLA w/ EOMs intact; vision and hearing grossly intact Neck: supple; no lymphadenopathy; trachea midline Skin: warm, dry without signs of tenting; no cyanosis; no rashes, bruising, lesions, or erythema noted CV: chest wall NTP; RRR; S1/S2 normal; no murmurs/rubs/gallops; pulses intact and symmetric at radial, DP, and PT Lungs: no acute respiratory distress; symmetrical chest wall expansion; clear breath sounds across all lung wood w/o adventitious sounds; no wheezing, rales, rhonchi ABD: Abdomen distended but soft and nontender to palpation; Hyperactive BS present in all 4 quadrants; no rebound/guarding. : No CVA tenderness bilaterally. No suprapubic tenderness. MSK: no tics or fasciculations; no edema noted in the LEs b/l, nonerythematous. Neuro: A&Ox3; normal mood and affect; fluent speech; no focal deficits; sensation grossly intact in the LEs b/l Results & Data Results & Data Vital Signs (Past 12 Hours) Vital Signs Temperature, HR, RR, BP, O2 Saturations reviewed Temp Pulse Resp BP Pulse Ox O2 Del Method 02/16/25 07:23 97.3 F L 75 18 166/74 H 94 Room Air 02/16/25 02:37 97.3 F L 81 18 166/80 H 94 Room Air 02/15/25 20:44 97.5 F L 76 18 175/76 H 94 Room Air Laboratory Results CBC, BMP, UA reviewed Diagnostic Findings Small Bowel Follow through study & KUB reviewed PG Care Time/CCT Total # of Minutes Spent Total Time Spent with Patient: Total time spent is greater than 50% in coordination of care (as documented) at patient's floor/unit and/or counseling patient: Coding Level of Care Code None Diagnoses Small bowel obstruction K56.609 Macrocytic anemia D53.9 Thrombocytopenia D69.6 Back pain M54.9 Diabetes mellitus, type 2 E11.9 Diabetes mellitus intermediate insulin use: without intermediate use (5) Diabetes mellitus, type 2 Diabetes mellitus intermediate designer insulin use: without intermediate use
--- NOTE | 2025-02-16 08:38 | Fluoroscopy Report ---
FL small bowel follow through CLINICAL HISTORY: 74 years-old Male with persistent sbo.. Small bowel obstruction TECHNIQUE: Oral barium was administered to the patient and serial radiographs of the abdomen were pe rformed. COMPARISON STUDY: KUB 02/15/2025 FLUOROSCOPY TIME: 0 minutes. FINDINGS: Supervisor Sheet Manufacturing radiograph of the abdomen demonstrates enteric tube distal tip projects over the gas tric body. Persistent dilated loops of small bowel measuring up to 4.7 cm compatible with ongoing obs truction. No pneumoperitoneum. Upon the administration of oral barium contrast, there is prompt opacification of the gastric lumen a nd proximal small bowel. The visualized terminal ileum is unremarkable. A small duodenal diverticulum is present. Transit to the large bowel occurred at approximately 4 hours. No acute fracture. Lumbar levoscoliosis. IMPRESSION: Findings compatible with partial small bowel obstruction. ACT 112: Negative or not required by law. The above report was generated using voice recognition software. It may contain grammatical, syntax o r spelling errors. Electronically signed by: Jeremías Mariee M.D. 02/16/2025 8:35 AM
[2025-02-16 09:24] LABS: Basophils # (auto) 0.02 K/uL (0.00-0.20); Basophils % (auto) 0.2 %; Eosinophils # (auto) 0.47 K/uL (0.00-0.50); Eosinophils % (auto) 5.5 %; Hemoglobin 11.8 g/dl (14.0-18.0); Immature Granulocytes # (auto) 0.03 K/uL (0.01-0.20); Immature Granulocytes % (auto) 0.3 %; Lymphocytes # (auto) 0.72 K/uL (1.20-3.40); Lymphocytes % (auto) 8.4 %; Mean Corpuscular Hemoglobin 34.2 pg (25.0-34.0); Mean Corpuscular Hgb Conc 33.7 g/dL (32.0-36.0); Mean Corpuscular Volume 101.4 fL (80.0-100.0); Mean Platelet Volume 10.7 fL (9.4-12.4); Monocytes # (auto) 0.58 K/uL (0.11-0.59); Monocytes % (auto) 6.8 %; Neutrophils # (auto) 6.76 K/uL (1.40-6.50); Neutrophils % (auto) 78.8 %; Platelet Count 107 K/uL (130-400); RDW Coefficient of Variation 12.9 % (11.5-14.5); RDW Standard Deviation 48.2 fL (36.4-46.3); Red Blood Count 3.45 M/uL (4.70-6.10); White Blood Count 8.58 K/ul (4.8-10.8)
[2025-02-16 09:28] LABS: BUN Creatinine Ratio 17.3 (10-20); Calcium 8.1 mg/dl (8.6-10.3); Creatinine Clr Calc Pharmacy 82.7 ml/min; Potassium 3.8 mmol/L (3.5-5.1)
--- NOTE | 2025-02-16 09:51 | XRay Report ---
KUB HISTORY: Acute renal and abdominal pain with small bowel obstruction sbo COMPARISON: Small bowel follow-through from yesterday, CT abdomen and pelvis 02/10/2025 FINDINGS: Enteric contrast in the large bowel without definite residual small bowel contrast. Colonic diverticulosis. The large bowel is normal in caliber while there is mild persistent gaseous distenti on of the small bowel measuring up to 4.0 cm, 4.7 cm on yesterday's study. Distal tip enteric tube pr ojects over the distal esophagus versus intrathoracic stomach. No renal calculi. No ureteral calculi. No pneumoperitoneum or pneumatosis. No fracture. IMPRESSION: 1 findings compatible with resolving small bowel obstruction. 2. Distal tip of the enteric tube projects over the lower in this patient with history of prior hiata l hernia. This may be within the distal esophagus versus proximal stomach. ACT 112: Negative or not required by law. The above report was generated using voice recognition software. It may contain grammatical, syntax o r spelling errors. Electronically signed by: Jeremías Mariee M.D. 02/16/2025 9:50 AM
[2025-02-16 12:05] LABS: Thyroid Stimulating Hormone 2.361 uIu/ml (0.300-4.500)
[2025-02-16 12:45] LABS: Folate (Folic Acid),Ser orPlas > 22.30 ng/ml (>5.38)
[2025-02-16 12:46] LABS: Vitamin B12 651 pg/ml (180-914)
[2025-02-16] MEDS: ESCITALOPRAM OXALATE 10 MG TAB PO SCH (20:34)
--- NOTE | 2025-02-17 06:36 | Surgery Progress Note ---
Date of Service February 17, 2025 Assessment & Plan (1) SBO (small bowel obstruction): Plan: Patient has been admitted to the hospitalist service. From surgery perspective we recommend the following: Clinical improvement continues Patient had NG tube removed yesterday (02/16/2025 Diet has been advanced to clear liquids which he is tolerating well Would continue IV fluids until certain oral intake is adequate and reliable Mobilize as able Check a.m. labs when available As above. Multiple loose bowel movements over the past 24 hours. No pain. He does have some mild distention. I do not believe he is ready for discharge yet. Will advance him to full liquids today and repeat KUB tomorrow. Admission and Anticipated Discharge Date Admission Date: February 10, 2025 Subjective Patient is currently resting comfortably in bed. He notes that his abdominal pain is present previously has markedly improved. He had his diet advanced to clear liquids which he is tolerating without exacerbating abdominal pain. He also denies any nausea or vomiting. He continues to have loose bowel movements. Physical Exam Gastrointestinal (Abdomen): Abdomen is soft with minimal distention. There is no pain noted with palpation Results & Data Vital Signs (Past 12 Hours) Vital Signs Temp Pulse Resp BP Pulse Ox O2 Del Method 02/16/25 21:35 36.8 C 71 18 163/73 H 96 Room Air PG Care Time/CCT Total # of Minutes Spent Total Time Spent with Patient: Total time spent is greater than 50% in coordination of care (as documented) at patient's floor/unit and/or counseling patient: Coding Level of Care Code 12488 SUB INP/OBS CARE 12/08MIN Diagnoses SBO (small bowel obstruction) K56.609
[2025-02-17 07:30] LABS: Basophils # (auto) 0.03 K/uL (0.00-0.20); Basophils % (auto) 0.4 %; Eosinophils # (auto) 0.48 K/uL (0.00-0.50); Eosinophils % (auto) 5.7 %; Hematocrit (blood only) 34.4 % (42.0-52.0); Hemoglobin 11.8 g/dl (14.0-18.0); Immature Granulocytes # (auto) 0.04 K/uL (0.01-0.20); Immature Granulocytes % (auto) 0.5 %; Lymphocytes # (auto) 1.04 K/uL (1.20-3.40); Lymphocytes % (auto) 12.5 %; Mean Corpuscular Hemoglobin 34.6 pg (25.0-34.0); Mean Corpuscular Hgb Conc 34.3 g/dL (32.0-36.0); Mean Corpuscular Volume 100.9 fL (80.0-100.0); Mean Platelet Volume 10.4 fL (9.4-12.4); Monocytes # (auto) 0.65 K/uL (0.11-0.59); Monocytes % (auto) 7.8 %; Neutrophils # (auto) 6.11 K/uL (1.40-6.50); Neutrophils % (auto) 73.1 %; Platelet Count 110 K/uL (130-400); RDW Coefficient of Variation 12.5 % (11.5-14.5); RDW Standard Deviation 46.9 fL (36.4-46.3); Red Blood Count 3.41 M/uL (4.70-6.10); White Blood Count 8.35 K/ul (4.8-10.8)
[2025-02-17 07:49] LABS: BUN Creatinine Ratio 11.5 (10-20); Calcium 8.1 mg/dl (8.6-10.3); Creatinine Clr Calc Pharmacy 84.4 ml/min; Potassium 3.8 mmol/L (3.5-5.1)
--- NOTE | 2025-02-17 09:00 | Hospitalist Progress Note ---
Date of Service February 17, 2025 Assessment & Plan (1) Small bowel obstruction: (2) Macrocytic anemia: (3) Thrombocytopenia: (4) Back pain: (5) Diabetes mellitus, type 2: Plan Patient is a 74 y/o male with a PMHx of GERD, T2DM, depression, BPH, sensorineural hearing loss. He presented to the ED due to mid sternal chest pain/ burning and vomiting. He was found to have a SBO. General surgery team is consulted and patient is being admitted to the hospitalist service. On admission, CT showed dilated small bowel loops concerning for small bowel obstruction, small amount of free fluid in abd and pelvis, no free air or abscess. Patient was made NPO, encouraged ambulation. Patient was experiencing worsening abdominal pain this AM, KUB was ordered and showing worsening small bowel dilation. NG tube was placed. Patient had leukocytosis POA, now resolved. He received IV Zofran 02/10-02/13. Update: #SBO last BM - 02/17/25 N.P.O. 02/10 - 02/16 IVF with LR at 100 ml/hr (pt having diarrhea, UA + ketones, weight 101kg) IV Protonix BID and IV pepcid BID, IV Tylenol scheduled for pain control. D/C IV morphine - has not needed IV Zofran as needed General Surgery following daily NG tube placed 02/12/25 and removed 02/16/25 Ambulation at least 3x/daily with technical staff assistant Recent imaging: Small bowel FT study on 02/15/25 with findings consistent with partial SBO, dilated bowel loops 4.7 cm and contrast did reach large bowel KUB 02/16/25 with findings compatible with resolving SBO, dilated bowel loops 4.0 cm Diet: 02/16 - clear liquids, has tolerated so far 02/17 - full liquids starting at lunch Continue current management and diet advancement per surgery. Consider UA recheck prior to discharge. Macrocytic Anemia/Thrombocytopenia Thrombocytopenia appears to be chronic Patient does have hx of alcohol use in past, no elevations in LFTs/bilirubin, TSH, Vitamin B12/Folate- all WNL Hemoglobin- 15.8 on admission Remains at 11.8 since 02/16. Fecal occult blood testing ordered on 02/16, obtained today and is negative Platelet count - 110 today from 107 yesterday, appears stable Continue to monitor while inpatient, will need outpatient PCP f/u Back pain right sided SI joint pain without radiculopathy received 1 time dose toradol 10mg 02/12/25, held as creatinine increased slightly. continue lidoderm patch and heat therapy PRN tylenol QHS supportive measures #Type 2 Diabetes Mellitus, controlled, without halfway use of insulin Controlled on semaglutide at home; hold Most recent A1C was 5.6 in 11/2024 defer insulin use as glucose well controlled; was using ozempic for weight loss BSG ACHS if eating, q6h if npo Chronic stable diagnoses: BPH - Resumed PO dutasteride 4/5 Monitor for obstruction, bladder scan and straight cath PRN Depression - Resumed PO escitalopram 4/5 VTE ppx: SCDs, defer chemical ppx until active bleeding r/o Diet: Full liquids Dispo: Med surg Admission and Anticipated Discharge Date Admission Date: February 10, 2025 Supervising Physician Co-Signing Physician Notes The patient was not seen by me. The chart was reviewed. Case discussed with MY Mcghee. Agree with assessment and plan Subjective Patient is a 74 year old male admitted with SBO on 02/10/25. Patient reports that he is feeling well. He was started on clear liquid diet yesterday at lunch, has tolerated so far without increased symptoms. He has been transition to full liquid diet for lunch today. He reports that he is still having, loose bowel movements. He states that BM color is dark brown instead of black. He reports that his abdomen is bloated, denies increased abdominal pain, nausea, vomiting, blood in stool. He did report some minimal cramping yesterday that has improved some. He is urinating regularly without dysuria, hematuria, or difficulty. He states back pain has improved and slept better last night. He has no additional complaints/concerns today. Additional ROS: Patient denies fevers/chills, headache, vision change, dizziness, sore throat, chest pain, sob, cough, numbness/tingling/weakness, rash, edema, bleeding/bruising. Review of Systems Review of Systems: see HPI Physical Exam Physical Exam: General: no acute distress; non-toxic appearing; well-nourished; cooperative; HEENT: normocephalic, atraumatic; no scleral icterus; PERRLA w/ EOMs intact; vision and hearing grossly intact Neck: supple; no lymphadenopathy; trachea midline Skin: warm, dry without signs of tenting; no cyanosis; no rashes, bruising, lesions, or erythema noted CV: chest wall NTP; RRR; S1/S2 normal; no murmurs/rubs/gallops; pulses intact and symmetric at radial, DP, and PT Lungs: no acute respiratory distress; symmetrical chest wall expansion; clear breath sounds across all lung wood w/o adventitious sounds; no wheezing, rales, rhonchi ABD: Abdomen mildly distended, soft, nontender to palpation. Hyperactive BS present in all 4 quadrants. No organomegaly noted. No fluid wave or spider angiomas. (+) umbilical hernia present, reducible. : No CVA tenderness bilaterally. No suprapubic tenderness. MSK: no tics or fasciculations; no edema noted in the LEs b/l, nonerythematous. Neuro: A&Ox3; normal mood and affect; fluent speech; no focal deficits; sensation grossly intact in the LEs b/l Results & Data Results & Data Vital Signs (Past 12 Hours) Vital Signs Temperature, HR, RR, BP, O2 saturations reviewed Temp Pulse Resp BP Pulse Ox O2 Del Method 02/17/25 07:22 98.1 F 67 18 151/79 H 96 Room Air 02/16/25 21:35 98.2 F 71 18 163/73 H 96 Room Air Laboratory Results CBC, BMP, fecal occult blood reviewed. Diagnostic Findings Surgical progress note reviewed PG Care Time/CCT Total # of Minutes Spent Total Time Spent with Patient: Total time spent is greater than 50% in coordination of care (as documented) at patient's floor/unit and/or counseling patient: Coding Level of Care Code None Diagnoses Small bowel obstruction K56.609 Macrocytic anemia D53.9 Thrombocytopenia D69.6 Back pain M54.9 Diabetes mellitus, type 2 E11.9 Diabetes mellitus halfway insulin use: without halfway use (5) Diabetes mellitus, type 2 Diabetes mellitus medical terminologist insulin use: without medical terminologist use
[2025-02-17] MEDS: LACTATED RINGER'S 1,000 ML IV SCH (10:42)
[2025-02-18 07:18] LABS: Basophils # (auto) 0.05 K/uL (0.00-0.20); Basophils % (auto) 0.5 %; Eosinophils # (auto) 0.51 K/uL (0.00-0.50); Eosinophils % (auto) 5.1 %; Hematocrit (blood only) 38.1 % (42.0-52.0); Hemoglobin 13.4 g/dl (14.0-18.0); Immature Granulocytes # (auto) 0.05 K/uL (0.01-0.20); Immature Granulocytes % (auto) 0.5 %; Lymphocytes # (auto) 2.01 K/uL (1.20-3.40); Lymphocytes % (auto) 19.9 %; Mean Corpuscular Hemoglobin 35.2 pg (25.0-34.0); Mean Corpuscular Hgb Conc 35.2 g/dL (32.0-36.0); Mean Platelet Volume 10.3 fL (9.4-12.4); Monocytes # (auto) 0.63 K/uL (0.11-0.59); Monocytes % (auto) 6.3 %; Neutrophils # (auto) 6.83 K/uL (1.40-6.50); Neutrophils % (auto) 67.7 %; Platelet Count 144 K/uL (130-400); RDW Coefficient of Variation 12.8 % (11.5-14.5); RDW Standard Deviation 47.7 fL (36.4-46.3); Red Blood Count 3.81 M/uL (4.70-6.10); White Blood Count 10.08 K/ul (4.8-10.8)
[2025-02-18 07:32] LABS: Calcium 8.4 mg/dl (8.6-10.3); Creatinine Clr Calc Pharmacy 72.3 ml/min; Potassium 3.6 mmol/L (3.5-5.1)
--- NOTE | 2025-02-18 08:50 | XRay Report ---
KUB HISTORY: sbo COMPARISON STUDY: 02/16/2025 FINDINGS: There is mild residual contrast in the descending colon, improved. There are a few scattere d mildly distended small bowel loops measuring up to 4 cm diameter, stable. No colonic distention see n. No gross free air. IMPRESSION: Stable mild small bowel distention. ACT 112: Negative or not required by law. The above report was generated using voice recognition software. It may contain grammatical, syntax o r spelling errors. Electronically signed by: Chun Haas M.D. 02/18/2025 8:48 AM
--- NOTE | 2025-02-18 12:53 | Surgery Progress Note ---
Date of Service February 18, 2025 Assessment & Plan (1) SBO (small bowel obstruction): Plan: resolving SBO advance to regular diet ambulate if does well possibly home in AM Admission and Anticipated Discharge Date Admission Date: February 10, 2025 Subjective Patient passing stool taking full liquids well still some abd pain but improved Review of Systems Constitutional: no fever and no chills Eyes: no problem reported Respiratory: no cough and no dyspnea Cardiovascular: no chest pain Gastrointestinal: + abdominal pain and + change in bowel h abits; no nausea and no vomiting Genitourinary: no dysuria Physical Exam Constitutional: WD/WN, vitals as above Neck: trachea midline Respiratory: no respiratory distress Cardiovascular: RRR, no murmur, no edema Gastrointestinal (Abdomen): Percussion/Palpation: + abdomen tender and abdomen soft; no guarding and abdomen not rigid Musculoskeletal: Head/Neck/Chest: normocephalic and head atraumatic Skin: no rashes, warm and dry Results & Data Vital Signs (Past 12 Hours) Vital Signs Temp Pulse Resp BP Pulse Ox O2 Del Method 02/18/25 11:37 36.4 C L 68 16 128/68 96 Room Air 02/18/25 08:02 36.4 C L 84 16 132/70 92 Room Air
--- NOTE | 2025-02-18 13:58 | Hospitalist Progress Note ---
Date of Service February 18, 2025 Assessment & Plan (1) Small bowel obstruction: (2) Macrocytic anemia: (3) Thrombocytopenia: (4) Back pain: (5) Diabetes mellitus, type 2: Plan Patient is a 74 y/o male with a PMHx of GERD, T2DM, depression, BPH, sensorineural hearing loss. He presented to the ED due to mid sternal chest pain/ burning and vomiting. Inital evaluation with Ct A/P showing SBO without free air or abscess. Evaluated by general surgery, had NG tube from 02/12-02/16 and then started on diet advancement. #SBO General Surgery following - advance diet to regular today, encourage ambulation. Possible d/c in AM if pain/distention improves Repeat KUB 02/18 - showed small bowel distention but no obstruction #Macrocytic Anemia/Thrombocytopenia Thrombocytopenia appears to be chronic, however today WNL. Reports hx of alcohol use in past, no elevations in LFTs/bilirubin, TSH, Vitamin B12/Folate- WNL Fecal occult negative. Hgb improving. #Back pain - resolved right sided SI joint pain without radiculopathy Supportive care: prn tylenol, lidoderm patch and heat therapy PRN #Type 2 Diabetes Mellitus, controlled, without residential use of insulin Home regimen: Semaglutide - HELD (? contributing to SBO). HgbA1C was 5.6 in 11/2024 BSG acceptable, no insulin needed BPH - continue dutasteride Depression - continue escitalopram Dispo: continued inpatient stay, possible d/c tomorrow DVT proh: encourage ambulation Discussed case with Lyndsey, surgery STEPHEN Admission and Anticipated Discharge Date Admission Date: February 10, 2025 Subjective Patient seen sitting in bed, very pleasant. Eager to go home, does still feel like his abdomen is distended today. Reports that he measured it with a tape measure. He was able to tolerate his lunch without any issues. Has been passing gas and has been ambulating in the hallway Review of Systems Review of Systems: All systems reviewed & are unremarkable except as noted in Subjective Physical Exam Physical Exam: General: NAD, VS as above, sitting up in bed, pleasant Resp: normal respiratory effort, lungs clear to auscultation CV: RRR, no murmur, Abd: normal bowel sounds, non tender, mild distention Extremities: Moves all extremities, no edema Neuro: A&O x3, Skin: intact, no lesions noted Results & Data Results & Data Vital Signs (Past 12 Hours) Vital Signs Temp Pulse Resp BP Pulse Ox O2 Del Method 02/18/25 11:37 97.5 F L 68 16 128/68 96 Room Air 02/18/25 08:02 97.5 F L 84 16 132/70 92 Room Air Laboratory Results cbc and chemistry reviewed Diagnostic Findings KUB reviewed PG Care Time/CCT Total # of Minutes Spent Total Time Spent with Patient: Total time spent is greater than 50% in coordination of care (as documented) at patient's floor/unit and/or counseling patient: Coding Level of Care Code 79076 SUB INP/OBS CARE 2/35MIN Diagnoses Small bowel obstruction K56.609 Macrocytic anemia D53.9 Thrombocytopenia D69.6 Back pain M54.9 Diabetes mellitus, type 2 E11.9 Diabetes mellitus residential insulin use: without gut dropper use (5) Diabetes mellitus, type 2 Diabetes mellitus residential insulin use: without residential use
[2025-02-18] MEDS: ACETAMINOPHEN 500 MG TAB PO PRN (20:30)
[2025-02-19 07:33] VITALS: RESP 14; TEMP 97.7; O2SAT 97
--- NOTE | 2025-02-19 10:15 | Surgery Progress Note ---
Date of Service February 19, 2025 Assessment & Plan (1) SBO (small bowel obstruction): Plan: resolved SBO SB dilatation on KUB yesterday but no extensive residual contrast from SBFT abdomen soft, mildy distended +flatus Plan: Okay from surgical standpoint for discharge needs bowel regimen continue medical management Discussed with Dr. Mcelroy who agrees with above. Admission and Anticipated Discharge Date Admission Date: February 10, 2025 Subjective feeling good, still feels bloated passing gas constipated, unsure when his last bowel movement was tolerated regular diet x 3 without abdominal pain, nausea, vomiting Physical Exam Constitutional: WD/WN, vitals as above cooperative and comfortable; no acute distress and not ill appearing Respiratory: normal respiratory effort; no respiratory distress Gastrointestinal (Abdomen): Inspection/Auscultation: abdomen normal to inspection, + abdomen distended (mild) and + hypoactive bowel sounds; + abnormal bowel sounds Percussion/Palpation: abdomen soft; abdomen nontender, no guarding, abdomen not rigid and abdomen not firm Skin: no rashes, warm and dry Psychiatric: Orientation: alert and oriented x 3 Results & Data Vital Signs (Past 12 Hours) Vital Signs Temp Pulse Resp BP Pulse Ox O2 Del Method 02/19/25 07:32 36.5 C 61 14 138/77 97 Room Air Laboratory Results 02/19/25 02/18/25 02/18/25 Range/Units 07:47 20:27 16:43 POC Glucose 100 H 100 H 131 H (70-99) mg/dl 02/18/25 Range/Units 11:32 POC Glucose 97 (70-99) mg/dl
--- NOTE | 2025-02-19 10:45 | Discharge Summary ---
Discharge Summary Date of Service February 19, 2025 Principal Dx & Hospital Course #1 = Principal Diagnosis (1) Small bowel obstruction: (2) Macrocytic anemia: (3) Thrombocytopenia: (4) Back pain: (5) Diabetes mellitus, type 2: Plan #SBO Patient is a 74 y/o male with a PMHx of GERD, T2DM, depression, BPH, sensorineural hearing loss. He presented to the ED due to mid sternal chest pain/ burning and vomiting. Inital evaluation with Ct A/P showing SBO without free air or abscess. Evaluated by general surgery, had NG tube from 02/12-02/16 and then started on diet advancement. Repeat KUB showed small bowel distention but no obstruction. Advanced to regular diet on 02/18, and cleared for discharge on 02/19 with bowel regimen recommended. Take miralax daily and hold ozempic, until bowels return to normal/discuss with PCP, but would favor discontinuing completely. #Macrocytic Anemia/Thrombocytopenia Thrombocytopenia appears to be chronic, however today WNL. Reports hx of alcohol use in past, no elevations in LFTs/bilirubin, TSH, Vitamin B12/Folate- WNL Fecal occult negative. Hgb improving. #Back pain - resolved, continue supportive care (tylenol/heat/lidocaine patch) #Type 2 Diabetes Mellitus, controlled, without mcfp use of insulin Home regimen: Semaglutide - HELD on discharge. consider discontinuation if cons tipation does not improve. #BPH - continue dutasteride #Depression - continue escitalopram Dispo: discharge to home today Discussed case with Lyndsey surgery STEPHEN Notes For Next Care Provider ? ozempic contributing to SBO. Held and started on miralax daily to see if bowels improve, but would favor not restating miralax Medication Changes From Visit ozempic held miralax daily Admission HPI Per Admitting Provider Patient is a 74 y/o male with a PMHx of GERD, T2DM, depression, BPH. He presented to the ED due to mid sternal chest pain/ burning and vomiting. He was found to have a SBO. General surgery team is consulted and patient is being admitted to the hospitalist service. Patient seen at bedside. he has upper/epigastric pain and burning that began this afternoon. He denies any previous history of small bowel obstructions or previous abdominal surgeries. He has vomited approximately 6 times in his began, however in small amounts, denies any hematemesis. He stated his last bowel movement was this morning at 11 AM, no abnormalities.Lightheadedness denies any visible areas of dehydration. He denies nicotine use. He is a pr evious alcoholic, denies any current daily alcohol use. He did not take any of his medications today, he needs his dutasteride. this is Ozempic injections on Wednesdays. He previously stated he was at the highest dose but it was decreased in November because it was giving him significant constipation. He has only been using 25% of the dosages. He wishes to be DNR/DNI. He stated his is updated that he is here. Discharge Exam General: NAD, VS as above, ambulating independently in the room Abd: normal bowel sounds, mild distention, but soft, nontender Extremities: Moves all extremities, no edema Neuro: A&O x3, Skin: intact, no lesions noted Discharge Plan Discharge Items Patient Disposition: Home - Self-Care Reason For Visit: SBO Discharge Diagnosis: Small Bowel obstruction Activity: Resume your previous activity Non-emergency contact: Primary Care Provider Call non-emergency contact if: you have any medication questions, your symptoms worsen, your pain is not controlled, your pain is worsening and your temperature is above 101 Follow-up/Referrals: Pro,Rainer Alvarado MD [Primary Care Provider] - 02/26/25 1:30 pm (follow up within one week ) Diet: Regular Addtl Attending Provider Instructions: Mr. Dewitt, You were hospitalized after having chest pain/burning and vomiting, this was found to be from a small bowel obstruction. Thankfully, you did not require surgery and this improved with conservative measures including an NG tube. You are tolerating a regular diet and passing stools that it is safe for you to be discharged. There was concern that your ozempic and constipation caused this bowel obstruction. Please do not take your ozempic until you further discuss this with your primary care provider. Please take miralax daily to keep your bowel movements soft. If you do not have a bowel movement for two days, please take a second dose of miralax that evening. Make sure you are staying hydrated and active to promote regular bowel movements. If you found the lidocaine patch helpful for your back pain, you can purchase these over the counter. You can do normal everyday activities as your body allows. Take rest breaks if you feel tired. Do not overexert. Stop activity if you have pain, shortness of breath or feel dizzy. Follow-up appointments: Make an appointment with your primary care physician within one week of discharge. A copy of this summary will be sent to them. Every time you see your primary care physician, or any other doctor, bring your medication list, and a list of questions. CONTACT YOUR PRIMARY CARE PROVIDER if you experience any of the following: Shortness of breath or difficulty breathing Fevers or chills Feeling tired with normal activity or experiencing dizziness or fainting Difficulty following your treatment plan, or difficulty taking medications CALL 911 OR GO TO THE EMERGENCY DEPARTMENT if you experience any of the following: Severe abdominal pain or nausea/vomiting Severe chest pain, or chest pain that radiates (moves) to your jaw or arm Sudden, severe shortness of breath or difficulty breathing Thank you for allowing us to participate in your care. Pending Studies at Discharge: No Stand-Alone Forms: My [facility] GetFeedback, Smoking Cessation Medications and DC Order Prescriptions: New polyethylene glycol 3350 [Miralax] 17 gram Powder In Packet 17 g PO DAILY 30 Days Qty: 30 0RF Continued simvastatin [Zocor] 20 mg tablet 20 mg PO PM Qty: 90 3RF cholecalciferol (vitamin D3) 50 mcg (2,000 unit) capsule 50 mcg PO DAILY Rx Instructions: 02/10-otc unable to verify dutasteride 0.5 mg capsule 0.5 mg PO HS multivitamin Tablet 1 tab PO QDL Rx Instructions: 02/10-otc unable to verify Held semaglutide 0.25 mg or 0.5 mg (2 mg/3 mL) pen injector 0.5 mg subcut .ONCE WEEKLY Qty: 3 3RF Hold Instructions: Provider's Order - discuss with PCP No Action escitalopram oxalate 10 mg tablet 20 mg PO DAILY Rx Instructions: per pt- 2- 10 mg tabs daily Discharge Orders: Discharge Order (Routine); Ordered 02/19/25 Ordered By: Simran Palmer/Other Patient Handouts: Treating Constipation Admission Data Admit Date/Time: 02/10/25 20:21 Attending Provider: Jessy Linares Admit Provider: Suresh Arizmendi Primary Care Provider: Rainer Tyler Other Providers: Mani Andrade; Joel Zambrano; Dony Billings; Arnulfo Mcelroy Other Interventions: Discharge Summary Assessment (RN) Last Done: 02/19/25 11:50 Hospital Stay Data Consultations 02/10/25 19:05 ED Decision to Admit Stat 02/10/25 19:10 Consult General Surgery Stat Procedures Performed Operation Date: 02/15/25 09:30 <No data on this case meets the specified criteria> Diagnostic Imagining Performed Chest X-Ray 02/10/25 16:24 INDICATION: Chest pain. TECHNIQUE: Frontal radiograph of the chest. COMPARISON: Radiograph from 01/07/2019. FINDINGS: Low inspiratory depth. Mild cardiomegaly. Pulmonary vasculature appear within normal limits. No infiltrate, pleural effusion or pneumothorax. No acute osseous abnormality evident. IMPRESSION: No acute cardiopulmonary process. Electronically signed by Lee Bradford 02-10-2025 5:48 PM Abdomen/Pelvis CT 02/10/25 16:45 INDICATION: Abdominal pain. COMPARISON: CT from 07/01/2019. TECHNIQUE: Axial CT images of the abdomen and pelvis were obtained following IV contrast administration. Coronal and sagittal reformations were reviewed. FINDINGS: Visualized lung bases appear unremarkable. The liver, gallbladder, spleen, pancreas and adrenal glands appear unremarkable. No hydronephrosis. Multiple bilateral renal cysts again noted. Fluid-filled distal esophagus. Fluid in the stomach. Dilated small bowel loops with air-fluid levels. No pneumatosis or portal venous gas. Small amount of fluid in the abdomen and pelvis. No free air or abscess. No evidence of colitis/appendicitis. Negative for abdominal aortic aneurysm or dissection. The urinary bladder appears unremarkable. No acute osseous abnormality evident. IMPRESSION: Dilated small bowel loops concerning for small bowel obstruction. No pneumatosis or portal venous gas. Small amount of fluid in the abdomen and pelvis. No free air or abscess. Follow-up as clinically relevant. Electronically signed by Lee Bradford 02-10-2025 5:34 PM KUB X-Ray 02/12/25 07:09 KUB HISTORY: Acute onset abdominal pain with reported obstruction eval sbo COMPARISON: CT 02/10/2025 FINDINGS: Persistent small bowel obstruction with dilated air-filled loops of small bowel measuring up to 4.8 cm. Findings have mildly progressed. No renal calculi. No ureteral calculi. No pneumoperitoneum or pneumatosis. Lumbar levoscoliosis with multilevel degenerative changes. No fracture. IMPRESSION: Persistent small bowel obstruction with progressive small bowel dilation. ACT 112: Negative or not required by law. The above report was generated using voice recognition software. It may contain grammatical, syntax or spelling errors. Electronically signed by: Jeremías Mariee M.D. 02/12/2025 9:27 AM KUB X-Ray 02/12/25 12:23 KUB HISTORY: Status post placement of an enteric tube NG tube placement COMPARISON: 02/12/2025 FINDINGS: Persistent small bowel obstruction with dilated air-filled loops of small bowel measuring up to 5.4 cm, previously 4.8 cm. Distal tip of enteric tube projected superiorly within the region of the gastric fundus. No renal calculi. No ureteral calculi. No pneumoperitoneum or pneumatosis. No fracture. IMPRESSION: Persistent small bowel obstruction with distal tip of enteric tube projected over the gastric fundus. ACT 112: Negative or not required by law. The above report was generated using voice recognition software. It may contain grammatical, syntax or spelling errors. Electronically signed by: Jeremías Mariee M.D. 02/12/2025 1:49 PM KUB X-Ray 02/13/25 07:18 KUB CLINICAL HISTORY: Small bowel obstruction. COMPARISON STUDY: CT of the abdomen and pelvis February 10, 2025. KUB February 12, 2025. FINDINGS: The tip of the nasogastric tube is within the gastric fundus. Multiple loops of moderately dilated small bowel measure up to 5.5 cm in caliber. Dilatation is similar to prior exam. Sensitivity for detection of free air is diminished on supine exam but none is identified. IMPRESSION: Persistent small bowel obstruction. ACT 112: Negative or not required by law. Electronically signed by: Aman Lopez M.D. 02/13/2025 9:09 AM KUB X-Ray 02/14/25 08:15 KUB HISTORY: eval SBO COMPARISON STUDY: 02/13/2025 FINDINGS: Since a study of one day ago, several loops of mid abdominal small bowel remain distended although the amount of distention has diminished when compared with the previous study. Scattered gas is identified in nondistended colon. There is no evidence of bowel wall thickening. The nasogastric tube is better positioned with the tip now near the gastric antrum. IMPRESSION: Small bowel obstruction improving with less distention when compared with the prior examination. ACT 112: Negative or not required by law. The above report was generated using voice recognition software. It may contain grammatical, syntax or spelling errors. Electronically signed by: Marcelina Mckeon M.D. 02/14/2025 9:31 AM KUB X-Ray 02/15/25 06:00 KUB HISTORY: Acute generalized abdominal pain with small bowel obstruction eval SBO COMPARISON: 02/14/2025 FINDINGS: Distal tip of enteric tube projects over the body. Persistent air- filled dilated loops of small bowel measure up to 5.7 cm, previously 5.0 cm. No renal calculi. No ureteral calculi. No pneumoperitoneum or pneumatosis. No fracture. IMPRESSION: Persistent small bowel obstruction. Continued follow-up is needed. ACT 112: Negative or not required by law. The above report was generated using voice recognition software. It may contain grammatical, syntax or spelling errors. Electronically signed by: Jeremías Mariee M.D. 02/15/2025 8:39 AM Small Bowel X-Ray 02/15/25 13:48 FL small bowel follow through CLINICAL HISTORY: 74 years-old Male with persistent sbo.. Small bowel obstruction TECHNIQUE: Oral barium was administered to the patient and serial radiographs of the abdomen were performed. COMPARISON STUDY: KUB 02/15/2025 FLUOROSCOPY TIME: 0 minutes. FINDINGS: Violin Maker Hand radiograph of the abdomen demonstrates enteric tube distal tip projects over the gastric body. Persistent dilated loops of small bowel measuring up to 4.7 cm compatible with ongoing obstruction. No pneumoperitoneum. Upon the administration of oral barium contrast, there is prompt opacification of the gastric lumen and proximal small bowel. The visualized terminal ileum is unremarkable. A small duodenal diverticulum is present. Transit to the large bow el occurred at approximately 4 hours. No acute fracture. Lumbar levoscoliosis. IMPRESSION: Findings compatible with partial small bowel obstruction. ACT 112: Negative or not required by law. The above report was generated using voice recognition software. It may contain grammatical, syntax or spelling errors. Electronically signed by: Jeremías Mariee M.D. 02/16/2025 8:35 AM KUB X-Ray 02/16/25 06:00 KUB HISTORY: Acute renal and abdominal pain with small bowel obstruction sbo COMPARISON: Small bowel follow-through from yesterday, CT abdomen and pelvis 02/10/2025 FINDINGS: Enteric contrast in the large bowel without definite residual small bowel contrast. Colonic diverticulosis. The large bowel is normal in caliber while there is mild persistent gaseous distention of the small bowel measuring up to 4.0 cm, 4.7 cm on yesterday's study. Distal tip enteric tube projects over the distal esophagus versus intrathoracic stomach. No renal calculi. No ureteral calculi. No pneumoperitoneum or pneumatosis. No fracture. IMPRESSION: 1 findings compatible with resolving small bowel obstruction. 2. Distal tip of the enteric tube projects over the lower in this patient with history of prior hiatal hernia. This may be within the distal esophagus versus proximal stomach. ACT 112: Negative or not required by law. The above report was generated using voice recognition software. It may contain grammatical, syntax or spelling errors. Electronically signed by: Jeremías Mariee M.D. 02/16/2025 9:50 AM KUB X-Ray 02/18/25 07:00 KUB HISTORY: sbo COMPARISON STUDY: 02/16/2025 FINDINGS: There is mild residual contrast in the descending colon, improved. There are a few scattered mildly distended small bowel loops measuring up to 4 cm diameter, stable. No colonic distention seen. No gross free air. IMPRESSION: Stable mild small bowel distention. ACT 112: Negative or not required by law. The above report was generated using voice recognition software. It may contain grammatical, syntax or spelling errors. Electronically signed by: Chun Haas M.D. 02/18/2025 8:48 AM Pending Results Patient Have Any Pending Studies at Discharge: No Discharge Instructions Given to Patient (Per Discharging Provider) Mr. Dewitt, You were hospitalized after having chest pain/burning and vomiting, this was found to be from a small bowel obstruction. Thankfully, you did not require surgery and this improved with conservative measures including an NG tube. You are tolerating a regular diet and passing stools that it is safe for you to be discharged. There was concern that your ozempic and constipation caused this bowel obstruction. Please do not take your ozempic until you further discuss this with your primary care provider. Please take miralax daily to keep your bowel movements soft. If you do not have a bowel movement for two days, please take a second dose of miralax that evening. Make sure you are staying hydrated and active to promote regular bowel movements. If you found the lidocaine patch helpful for your back pain, you can purchase these over the counter. You can do normal everyday activities as your body allows. Take rest breaks if you feel tired. Do not overexert. Stop activity if you have pain, shortness of breath or feel dizzy. Follow-up appointments: Make an appointment with your primary care physician within one week of discharge. A copy of this summary will be sent to them. Every time you see your primary care physician, or any other doctor, bring your medication list, and a list of questions. CONTACT YOUR PRIMARY CARE PROVIDER if you experience any of the following: Shortness of breath or difficulty breathing Fevers or chills Feeling tired with normal activity or experiencing dizziness or fainting Difficulty following your treatment plan, or difficulty taking medications CALL 911 OR GO TO THE EMERGENCY DEPARTMENT if you experience any of the following: Severe abdominal pain or nausea/vomiting Severe chest pain, or chest pain that radiates (moves) to your jaw or arm Sudden, severe shortness of breath or difficulty breathing Thank you for allowing us to participate in your care. Supervising Physician Co-Signing Physician Notes MY Supervision Note: I did not personally see or examine the patient today, but I verified all falcon points of MY Covarrubias's assessment and plan with the following exceptions/additions: None Total Time Total Time Spent Total Time Spent (In Minutes): Time spent day of discharge 35 minutes including direct patient care, medication reconciliation, documentation, review of labs and images, and coordination of care. Coding Level of Care Code 52683 INP/OBS DISCH >30 MIN Diagnoses Small bowel obstruction K56.609 Macrocytic anemia D53.9 Thrombocytopenia D69.6 Back pain M54.9 Diabetes mellitus, type 2 E11.9 Diabetes mellitus long term care pharmacist insulin use: without mcfp use
[2025-02-19 11:51] VITALS: BP 146/72; PULSE 74
[2025-02-20] MEDS ORDERED: POLYETHYLENE (MIRALAX) 17 GM PACK PO SCH (09:00)
== END 2025-02-19 12:00 | disposition home or self-care (01) | DRG 390 ==
LOC: ED 16:15 → SUATTDRO 20:21 → 3W 20:21
DX: D53.9 Nutritional anemia, unspecified; Z88.8 Allergy status to other drugs, medicaments and biological substances; Z66 Do not resuscitate; Z91.040 Latex allergy status; K21.9 Gastro-esophageal reflux disease without esophagitis; N40.0 Benign prostatic hyperplasia without lower urinary tract symptoms; D69.6 Thrombocytopenia, unspecified; Z86.0100 Personal history of colon polyps, unspecified; K56.609 Unspecified intestinal obstruction, unspecified as to partial versus complete obstruction; H90.A22 Sensorineural hearing loss, unilateral, left ear, with restricted hearing on the contralateral side; Z91.048 Other nonmedicinal substance allergy status; F32.A Depression, unspecified; Z79.899 Other long term (current) drug therapy; E11.42 Type 2 diabetes mellitus with diabetic polyneuropathy; M53.3 Sacrococcygeal disorders, not elsewhere classified; E78.5 Hyperlipidemia, unspecified; Z79.85 Long-term (current) use of injectable non-insulin antidiabetic drugs